=== PATIENT | male | born 1950 | race Caucasian/White ===

== ENCOUNTER 2023-06-14 15:47 | Emergency (ER) | payer OTHER, MEDICARE, SELFPAY ==
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
--- NOTE | 2023-06-14 15:56 | RT.EKG_ITS ---
APPROVED REPORT Exam: Resting ECG Reason for Exam: lightheaded Patient Location: E HR:87 bpm ECG Measurements Heart Rate 87 AXIS MN 136 P 43 QRSd 85 QRS 22 QT 358 T 20 QTc 432 Conclusion Sinus rhythm...V-rate 60- [address]. [address] segment or T wave abnormalities to suggest occlusive OR
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
[2023-06-14 16:06] VITALS: BP 112/76; PULSE 98; RESP 15; TEMP 37; O2SAT 96
[2023-06-14 16:47] VITALS: RESP 20
[2023-06-14 16:47] LABS: Abs Immature Grans 0.02 10^3/uL (0.0-0.06); Absolute Basophil Count 0.06 10^3/uL (0.0-0.2); Absolute Eosinophil Count 0.14 10^3/uL (0.0-0.7); Absolute Lymphocyte Count 1.41 10^3/uL (1.2-3.4); Absolute Monocyte Count 0.76 10^3/uL (0.1-0.8); Absolute Neutrophil Count 5.52 10^3/uL (1.2-6.7); Basophils % 0.8; Eosinophils % 1.8; HCT 43.8 % (40.0-50.0); HGB 15.3 g/dL (13.5-17.5); Immature Grans % 0.3; Lymphocytes % 17.8; MCH 33.1 pg (27.0-33.0); MCHC 34.9 % (32.0-36.0); MCV 95 fL (80-95); MPV 8.9 fL (8.0-11.0); Monocytes % 9.6; Neutrophils % 69.7; Platelet Count 285 10^3/uL (130-400); RBC 4.62 10^6/uL (4.36-5.78); RDW 12.2 % (11.8-14.1); RDW-SD 42.8 fL; WBC 7.91 10^3/uL (4.4-10.8)
[2023-06-14 16:50] LABS: Bilirubin Negative (Negative); Blood Negative (Negative); Clarity Clear (Clear); Glucose Negative (Negative); Ketones Negative (Negative); Leukocyte Esterase Negative (Negative); Nitrite Negative (Negative); Specific Gravity 1.015 (1.005-1.025); Urobilinogen 0.2 mg/dL (Up to 0.2); pH 6.5 (5-8)
[2023-06-14 17:00] LABS: ETHANOL BLOOD < 3.0 mg/dL (<10)
[2023-06-14 17:05] LABS: ALT 24 U/L (16-63); AST 21 U/L (15-37); Albumin 4.1 g/dL (3.4-5.0); Alkaline Phosphatase 63 U/L (46-116); Amylase 95 U/L (25-115); Anion Gap 8.4 mmol/L (3-11); BUN 17 mg/dL (7-18); Bilirubin, Total 0.3 mg/dL (0.2-1.0); CO2 27.6 mmol/L (21.0-32.0); Calcium 9.9 mg/dL (8.5-10.1); Chloride 102 mmol/L (98-107); Estimated GFR 78.49 (mL/min/1.73m2); Glucose 116 mg/dL (74-106); Lipase 32 U/L (16-77); Potassium 3.6 mmol/L (3.5-5.1); Sodium 138 mmol/L (136-145); Total Protein 8.1 g/dL (6.4-8.2); Troponin I < 50 ng/L (<or=60)
[2023-06-14 20:04] LABS: Troponin I < 50 ng/L (<or=60)
== END 2023-06-14 20:53 | disposition home or self-care (01) ==
PROVIDERS: Emergency Provider Student in an Organized Health Care Education/Training Program
DX: R42 Dizziness and giddiness (principal); V47.0XXA Car driver injured in collision with fixed or stationary object in nontraffic accident, initial encounter
CPT/HCPCS: 36415; 80053; 83690; 93005; 99283; 70450; 72125; 80320; 81003; 82150; 84484; 85025; 93010; 99284

== ENCOUNTER → 2024-01-17 05:01 | Outpatient (CLI) | payer MEDICARE, SELFPAY ==
--- NOTE | 2024-01-17 | DI.RAD_ITS ---
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 TECHNIQUE: 2D digital imaging was performed. Five views. COMPARISON: No exams were available for comparison FINDINGS: BONES: No fracture or destructive lesion. Vertebral body heights are maintained. Facet degenerative changes greatest at L4-5 and L5-S1. No bony erosions. SI joints are unremarkable. DISKS: Mild narrowing of the L 4 5 disc space. Small endplate osteophytes. Intervertebral disc spac es are maintained. ALIGNMENT: Lumbar spinal alignment is within normal limits. SOFT TISSUE: Aorta calcified and normal in diameter. IMPRESSION: Degenerative changes of the lower lumbar spine. DATA REPOSITORY: RADIATION DOSE DELIVERED:
== END ==
PROVIDERS: PCP Nurse Practitioner Family; Visit Provider Student in an Organized Health Care Education/Training Program
DX: M51.36 Other intervertebral disc degeneration, lumbar region (principal)
CPT/HCPCS: 72100

== ENCOUNTER → 2024-02-23 00:37 | Outpatient (CLI) | payer MEDICARE, SELFPAY ==
--- NOTE | 2024-02-23 13:15 | DI.RAD_ITS ---
Exam(s) XR FOOT RT COMPLETE EXAM: XR FOOT RT COMPLETE CLINICAL HISTORY: 1 month of pain,plantar fascitis rt foot, m72.2. TECHNIQUE: 2D digital imaging was performed of the right foot. Three images were obtained. AP, obl ique and lateral views were obtained. COMPARISON: No exams were available for comparison FINDINGS: BONES: No acute fracture is present. No bony destructive lesion is seen. There is a small plantar ry caneal spur. There is an enthesophyte at the posterior calcaneus. JOINTS: No dislocation present. Well corticated osseous densities are seen at the dorsal aspect of th e talonavicular joint which are likely chronic. SOFT TISSUE: Normal. IMPRESSION: Plantar calcaneal spur. DATA REPOSITORY: RADIATION DOSE DELIVERED:
== END ==
PROVIDERS: PCP Nurse Practitioner Family; Visit Provider Nurse Practitioner Family
DX: M72.2 Plantar fascial fibromatosis (principal)
CPT/HCPCS: 73630

== ENCOUNTER 2024-05-23 02:11 | Outpatient (CLI) | payer MEDICARE, SELFPAY ==
--- NOTE | 2024-05-23 15:05 | DI.MRI_ITS ---
Exam(s) MR LUMBAR SPINE WO EXAM: MR LUMBAR SPINE WO CLINICAL HISTORY: no improvement with PT,spinal stenosis, weakness,m48.00,r53.1. TECHNIQUE: Multiplanar multisequence MRI of the Lumbar spine was performed. COMPARISON: CR XR LUMBAR SPINE AP, LAT from 01/17/2024 FINDINGS: Bones: The last intervertebral disc space is designated the L5/S1 level for the numbering purpose of this examination. The vertebral body heights are well maintained. Alignment is satisfactory. There is a hemangioma or fatty rest in the L1 vertebral body and the L3 vertebral body. Degenerative endpl ate signal changes are present in the lumbar spine particularly at L4-L5. Cord: The conus tip ends at the L1 level. It is of normal size and signal intensity. T12-L1: No disc herniations or bulges are present. No central spinal canal or neural foraminal stenos is. L1-2: No disc herniations or bulges are present. No central spinal canal or neural foraminal stenosis . L2-3: No disc herniations or bulges are present. No central spinal canal or neural foraminal stenosis . L3-4: No disc herniations or bulges are present. No central spinal canal or neural foraminal stenosis .There are degenerative changes of the facets. L4-5: There is a diffuse disc bulge. There are hypertrophic changes of the facets and ligamentum fla vum. The findings result in mild narrowing of the central spinal canal. There is moderately severe bilateral neural foraminal stenosis. L5-S1: There is a mild diffuse disc bulge. There are degenerative changes of the facets and mild hyp ertrophy of the ligamentum flavum. No significant central spinal canal or neural foraminal stenosis is present. Soft tissues: The visualized SI joints and sacrum are well maintained. The paraspinal soft tissues ar e unremarkable. Visualized abdominal organs: Unremarkable. IMPRESSION: Multilevel degenerative changes. The findings are most marked at L4-L5 as described above. At this level, there is mild central spinal canal stenosis and moderately severe bilateral neural foraminal s tenosis. DATA REPOSITORY:
== END 2024-05-23 02:31 ==
LOC: DI 02:11
PROVIDERS: PCP Nurse Practitioner Family; Visit Provider Nurse Practitioner Family
DX: M48.061 Spinal stenosis, lumbar region without neurogenic claudication (principal); R53.1 Weakness
CPT/HCPCS: 72148

== ENCOUNTER 2024-06-13 02:07 | Outpatient (CLI) | payer MEDICARE, SELFPAY ==
[2024-06-13 12:32] LABS: ALT 23 U/L (16-63); AST 18 U/L (15-37); Albumin 3.8 g/dL (3.4-5.0); Alkaline Phosphatase 62 U/L (46-116); Anion Gap 5.9 mmol/L (3-11); BUN 16 mg/dL (7-18); Bilirubin, Total 0.56 mg/dL (0.2-1.0); CO2 28.1 mmol/L (21.0-32.0); CREATININE 1.1 mg/dL (0.70-1.30); Calcium 9.3 mg/dL (8.5-10.1); Calculated LDL 148 mg/dL (<100); Chloride 104 mmol/L (98-107); Cholesterol 221 mg/dL (<200); Estimated GFR 69.57 (mL/min/1.73m2); Glucose 118 mg/dL (74-106); HDL Cholesterol 53 mg/dL (40-60); Potassium 3.6 mmol/L (3.5-5.1); Sodium 138 mmol/L (136-145); Total Protein 7.7 g/dL (6.4-8.2); Triglyceride 103 mg/dL (<150)
[2024-06-13 12:41] LABS: Hemoglobin A1C 5.8 % (<5.7)
== END 2024-06-13 02:08 | disposition home or self-care (01) ==
LOC: LOS 02:07
PROVIDERS: PCP Nurse Practitioner Family; Visit Provider Nurse Practitioner Family
DX: E78.5 Hyperlipidemia, unspecified (principal); R73.03 Prediabetes
CPT/HCPCS: 36415; 80053; 80061; 83036

== ENCOUNTER → 2024-06-14 10:37 | Outpatient (BNVA) | payer MEDICARE, SELFPAY | PROVIDERS: PCP Nurse Practitioner Family; Referring Provider Nurse Practitioner Family; Visit Provider Psychiatry & Neurology Neurology | DX: G91.9 Hydrocephalus, unspecified (principal); R26.9 Unspecified abnormalities of gait and mobility; M54.50 Low back pain, unspecified; M48.061 Spinal stenosis, lumbar region without neurogenic claudication; R41.3 Other amnesia | CPT/HCPCS: 99215; G2212 ==

== ENCOUNTER 2024-06-23 20:30 | Observation (INO) | payer MEDICARE, SELFPAY ==
[2024-06-23] VITALS (33 sets, daily range): BP systolic 148–171; BP diastolic 83–105; PULSE 83–105; RESP 14–22; TEMP 36.5; O2SAT 92–97
--- NOTE | 2024-06-23 20:30 | DI.CT_ITS ---
Exam(s) CT CHEST/ABD/PEL W EXAM: CT CHEST/ABD/PEL W CLINICAL HISTORY: syncope, abd pain. TECHNIQUE: Imaging Protocol: Axial computed tomography images with coronal and sagittal reformatted images were created and reviewed CONTRAST MATERIAL: Intravenous: Omnipaque 350 Contrast volume:100 ml Oral: None COMPARISON: No exams were available for comparison FINDINGS: CHEST: LUNGS: Mild increased markings in the left lower lobe posterior basal and lateral basal segments but without air bronchograms and there are no pleural effusions. No findings in the trachea and mainstem bronchi. MEDIASTINUM: There is no hilar nor mediastinal adenopathy. Visualized thyroid unremarkable. CARDIAC: Heart size is normal. There is no pericardial effusion.Caliber of the thoracic aorta is wit hin normal limits.. No evidence of aortic dissection. OSSEOUS: No significant osseous lesions.No fractures.. ABDOMEN: There is no ascites. Stomach is filled with food. No evidence of bowel obstruction, free air, nor a bscess. LIVER: Liver is somewhat hypodense implying steatosis. There no discrete focal hepatic lesions ident ified. GALLBLADDER/BILIARY: No obvious gallbladder pathology. CBD is not dilated. PANCREAS: No evidence of pancreatic mass nor dilatation of the pancreatic duct. SPLEEN: Spleen is not enlarged. There are no intrasplenic lesions. Splenic and portal veins are farias nt. ADRENALS: There are no significant adrenal masses. KIDNEYS: Bilateral nephrolithiasis. Small calculi are seen in both kidneys. There is no hydronephro sis nor hydroureter. There is a benign 1 cm cyst in the lateral cortex of the right kidney. Does no t require further imaging workup. No solid renal masses. Ureters are not dilated. There is a calcu eric in the right-side of the urinary bladder which measures 8 x 6 mm. No other calculi nor masses se en in the bladder lumen.. ABDOMINAL AORTA: Abdominal aorta is calcified but not enlarged. Iliac arteries not enlarged. LYMPH NODES: There is no retroperitoneal nor paraaortic adenopathy. ABDOMINAL WALL: No evidence of significant anterior abdominal wall nor inguinal hernia. GI: There is no evidence of bowel obstruction. PELVIS: LYMPH NODES: There is no intrapelvic nor inguinal adenopathy. GI: No evidence of appendicitis.Multiple diverticuli in the sigmoid without evidence of acute diverti culitis. The colon above the sigmoid is collapsed. However, there does not appear to be evidence of a small-bowel obstruction. URINARY BLADDER: Contains an 8 x 6 mm calculus on the dependent wall, right of center. There is a sma ll Hutch diverticulum on the right side of the urinary bladder. Does not contain calculi nor mass. REPRODUCTIVE: Prostate size normal. Seminal vesicles unremarkable. OSSEOUS: No significant osseous lesions. No fractures. IMPRESSION: 1. No significant acute pulmonary findings 2. Bilateral nephrolithiasis. Although there is no hydronephrosis nor hydroureter, there is an 8 x 6 mm calculus in the urinary bladder lumen. Hutch diverticulum on the right side of the urinary bladde r is noted. This does not contain calculi nor mass. 3. Sigmoid diverticulosis without evidence of acute diverticulitis. There is also no evidence of acu te appendicitis. First read by [facility] Final report called by myself to ER next date 06/24/2024 RADIATION DOSE DELIVERED: 1,311.55mGy.cm Total DLP DATA REPOSITORY: All CT scans at this facility are submitted to the National Radiology Data Registry (NRDR) Dose Index Registry (DIR) with the [employer] (ACR). RADIATION OPTIMIZATION: All CT scans at this facility use at least one of these dose optimization te chniques: automated exposure control; mA and/or kV adjustment per patient size (includes targeted exa ms where dose is matched to clinical indication); or iterative reconstruction.
--- NOTE | 2024-06-23 20:30 | RT.EKG_ITS ---
APPROVED REPORT Exam: Resting ECG Reason for Exam: syncope Patient Location: E HR:77 bpm ECG Measurements Heart Rate 77 AXIS TN 152 P 56 QRSd 85 QRS 53 QT 396 T 38 QTc 447 Conclusion Sinus rhythm...normal P axis, V-rate 60- 99 sinus, nromal axis, normal intervals, non ischemic
--- NOTE | 2024-06-23 20:30 | DI.CT_ITS ---
Exam(s) CT HEAD WO EXAM: CT HEAD WO CLINICAL HISTORY: syncope, HI, eliquis, hx of hydrocephalus. TECHNIQUE: Imaging Protocol: Axial computed tomography images with coronal and sagittal reformatted images were created and reviewed COMPARISON: CT CT HEAD CERVICAL SPINE WO from 06/14/2023 FINDINGS: There are no skull fractures. There is no fluid in the visualized paranasal sinuses. There is no evidence of intracranial hemorrhage, mass effect, or shift of midline structures. There are no extra-axial fluid collections. Ventricular size is again noted to be slightly prominent but u nchanged and commensurate with the size of the overlying cortical sulci. Thumb symmetrical periventr icular hypodensity consistent with chronic small vessel disease is again noted. Left so symmetrical areas of subtle hypodensity in both cerebellar hemispheres, unchanged. IMPRESSION: No acute intracranial findings on this noninfused CT scan of the brain. Involutional change and chronic small-vessel disease appears unchanged from prior CT scan of June 2023. RADIATION DOSE DELIVERED: 908.9mGy.cm Total DLP DATA REPOSITORY: All CT scans at this facility are submitted to the National Radiology Data Registry (NRDR) Dose Index Registry (DIR) with the [employer] (ACR). RADIATION OPTIMIZATION: All CT scans at this facility use at least one of these dose optimization te chniques: automated exposure control; mA and/or kV adjustment per patient size (includes targeted exa ms where dose is matched to clinical indication); or iterative reconstruction.
--- NOTE | 2024-06-23 20:48 | ED.GENADUL_ITS ---
Discharge Plan Disposition Condition: Good Discharge Details Chief Complaint: Dizzy/Sync Admit Date/Time: 06/24/24 00:20 Admit Provider: Flo Epperson Attending Provider: Flo Epperson Primary Care Provider: Quinn Solis ED Provider: Valery Rodriguez Discharge Instructions Activity:: Activity as Tolerated Equipment/Supplies:: No Equipment Needed Diet:: As Tolerated Discharge Orders Discharge Orders: Discharge Order (Routine); Ordered 06/24/24 Ordered By: Yoselin Rainey Discharge Data Discharge Date/Time-TO BE ENTERED AT DEPARTURE: 06/24/24 01:20 HPI General Date/Time Provider Initiated Documentation: 06/23/24 20:42 . HPI Narrative: This 74-year-old male states that he developed syncope with lightheadedness nausea, vomiting after having severe abdominal pains and diarrhea. He was sitting on the toilet and passed out once he was about to pass out again, family caught him. States he has a history of syncope in the past. Denies any chest pain or palpitations prior to onset of symptoms. States he had some lightheadedness and felt like he might pass out. Has had intermittent nausea and vomiting. Has also had significant diarrhea. Denies any recent antibiotic use. States he still feels weak. Related Data Home Medications ?Medication ?Instructions ?Recorded ?Confirmed B-complex with vitamin C 1 cap PO DAILY 08/02/23 06/23/24 acetaminophen 325 mg capsule 325 mg PO Q6H PRN 08/02/23 06/23/24 (Tylenol) multivitamin 1 tab PO DAILY 08/02/23 06/23/24 apixaban 5 mg tablet (Eliquis) 5 mg PO BID #180 tabs 08/10/23 06/23/24 diltiazem HCl 120 mg capsule,24 120 mg PO DAILY #90 caps 08/10/23 06/23/24 hr,extended release hydrochlorothiazide 12.5 mg tablet 12.5 mg PO DAILY #90 tabs 08/10/23 06/23/24 lisinopril 5 mg tablet 5 mg PO DAILY #90 tabs 08/10/23 06/23/24 etanercept 50 mg/mL (1 mL) 50 mg subcut QWEEK #4 mL 09/26/23 06/23/24 subcutaneous cartridge (Enbrel Mini) meclizine 25 mg tablet 25 mg PO DAILY PRN dizziness #30 05/28/24 06/23/24 tabs ondansetron 4 mg disintegrating 4 mg PO Q8H PRN 06/14/24 06/24/24 tablet Previous Rx's ?Medication ?Instructions ?Recorded apixaban 5 mg tablet (Eliquis) 5 mg PO BID #180 tabs 08/10/23 diltiazem HCl 120 mg capsule,24 120 mg PO DAILY #90 caps 08/10/23 hr,extended release hydrochlorothiazide 12.5 mg tablet 12.5 mg PO DAILY #90 tabs 08/10/23 lisinopril 5 mg tablet 5 mg PO DAILY #90 tabs 08/10/23 etanercept 50 mg/mL (1 mL) 50 mg subcut QWEEK #4 mL 09/26/23 subcutaneous cartridge (Enbrel Mini) meclizine 25 mg tablet 25 mg PO DAILY PRN dizziness #30 05/28/24 tabs Allergies Allergy/AdvReac Type Severity Reaction Status Date / Time [id number] Reductase AdvReac Intermediate myalgias Verified 06/23/24 20:39 Inhibitor General Stated Complaint: Dizzy/Sync ROMÁN: 3 Exam Narrative Exam Narrative: 74-year-old male alert and oriented, pupils equal round reactive to light and accommodation, oropharynx patent, uvula midline, lungs clear to auscultation, cardiac rate rhythm regular, mild diffuse abdominal tenderness without rebound or guarding, alert and oriented x 4, cranial nerves II through XII intact, 1+ edema to bilateral lower extremities without tenderness Course Vital Signs Vital signs: Vital Signs Temperature 36.5 C 06/23/24 20:32 Pulse 83 06/23/24 20:32 Respiratory Rate 20 06/23/24 20:32 Blood Pressure 150/83 H 06/23/24 20:32 Pulse Oximetry 95 06/23/24 20:32 Temperature 36.5 C 06/23/24 20:32 Temperature Source Oral 06/23/24 20:32 Pulse 83 06/23/24 20:32 Respiratory Rate 18 06/23/24 20:36 Respiratory Effort Normal 06/23/24 20:36 Respiratory Depth Normal 06/23/24 20:36 Respiratory Pattern Normal 06/23/24 20:36 Blood Pressure 150/83 H 06/23/24 20:32 Pulse Oximetry 95 06/23/24 20:32 Oxygen Delivery Method Nasal Cannula 06/23/24 20:32 Oxygen Flow Rate 2 06/23/24 20:32 Medical Decision Making 74-year-old male presenting with recurrent syncope in the presence of immunodeficiency, atrial fibrillation history, chronically anticoagulated, with hydrocephalus. Patient had an episode of mild confusion with severe abdominal pain and diarrhea followed by recurrent syncope, family states 4-5 syncopal events over the course of 10 minutes. No reported seizure-like activity. Patient secondary to age and medical comorbidities I did order CT head and chest, abdomen and pelvis. The results of these are pending secondary to delay by virtual radiology. Diagnostic labs are reassuring, potassium of 3.3, will supplement. Patient also will receive his nightly dose of diltiazem. I did not check orthostatics in this patient but he did receive 500 cc of fluid, will use caution secondary to fluids shortage. I did administer fluid in the presence of nausea with 1 episode of vomiting and multiple episodes of diarrhea. Patient has not been on recent antibiotics to lower suspicion for C. difficile colitis. Patient did have a cookie with marijuana and ate, he had a similar cookie yesterday evening and regularly consumes space and does not believe this is the cause. Patient has been resting comfortably but without any dysrhythmia during this encounter. I did discuss the case with Dr. Epperson given the recurrent syncope, patient age, and history of dysrhythmia. I think patient would benefit from 24-hour observation. Patient is pending CT head and chest abdomen and pelvis assessment at this time. Will transition care pending CTs for admission to the hospital. 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 systolic function w/ an EF of 55%, mild left vent hypertrophy, mild dilated left atrium, diastolic dysfunction, no hemodynamically significant valve abnormalities Medical History TIA (transient ischemic attack) Surgical History Hx of cataract surgery (~2015) H/O total knee replacement (~2020) 07/19/[address] [facility]. -[facility] Family History Mother Dementia Heart disease Hypertension Father Cancer Brother Heart disease Hypertension Daughter Asthma Hypertension Son Heart disease Hypertension Social History Smoking/Tobacco Use Status: Never Second Hand Exposure: Yes Smoking risk assessment performed?: Yes Alcohol Intake: current Alcohol Intake frequency: a few times a month Alcohol type: beer Drug use: Rarely Substance use type: marijuana Adopted: No Caregiver/Support person: No Foster care: No Household members: spouse and family Housing: house Number of Children: 1 number of grandchildren: 2 Communication Needs: Corrective Lenses Do you need help understanding health information?: Never current occupation: retired Pets and animals: Yes Pets and animals: dog(s) Sexually active: No Do you think of yourself as: straight/heterosexual Current gender identity: male What is your relationship status?: How often do you talk on the phone with friends or family?: once per week How often do you get together with friends or relatives?: decline to answer How often do you attend mosque or mandaen services?: decline to answer Do you belong to any clubs or organized social groups?: yes Panel score (0-1 are the most socially isolated patients): 2 What type of physical activity do you participate in: none Dawna/Congregational: None Special dawna needs: No Agree to transfusion: Yes Seatbelt use: always Helmet use: Yes Drive intox or ride w/intox transit bus driver: No Working smoke detector in home: Yes Carbon monox detector in home: Yes Firearms in home: No Do you feel safe at home: Yes Do you feel safe in your relationship?: Yes Victim of physical abuse: No Victim of emotional abuse: No Victim of sexual abuse: No Sign Out Sign Out Data: Sign Out Comment: pending ct interpretation head,chest,abd, pelvis. Hospitalist aware of pt, pls call post CT Last updated by Anju Kirk PA at 06/23/24 23:16
[2024-06-23 20:56] LABS: Lactate 1.2 mmol/L (0.6-1.4)
[2024-06-23 20:58] LABS: Abs Immature Grans 0.02 10^3/uL (0.0-0.06); Absolute Basophil Count 0.05 10^3/uL (0.0-0.2); Absolute Lymphocyte Count 2.37 10^3/uL (1.2-3.4); Absolute Monocyte Count 0.89 10^3/uL (0.1-0.8); Absolute Neutrophil Count 4.88 10^3/uL (1.2-6.7); Basophils % 0.6 %; Eosinophils % 2.4 %; HGB 14.2 g/dL (13.5-17.5); Immature Grans % 0.2 %; Lymphocytes % 28.2 %; MCH 33.6 pg (27.0-33.0); MCHC 34.6 % (32.0-36.0); MCV 97 fL (80-95); Monocytes % 10.6 %; Platelet Count 253 10^3/uL (130-400); RBC 4.23 10^6/uL (4.36-5.78); RDW 12.4 % (11.8-14.1); RDW-SD 44.2 fL; WBC 8.41 10^3/uL (4.4-10.8)
[2024-06-23] MEDS: Omnipaque 350 MG/ML 100 ML BTL IJ (21:10)
[2024-06-23] MEDS: Normal Saline - Diluent 50 ML VIAL IJ (21:10)
[2024-06-23 21:14] LABS: ALT 26 U/L (16-63); AST 18 U/L (15-37); Albumin 3.8 g/dL (3.4-5.0); Alkaline Phosphatase 59 U/L (46-116); BUN 19 mg/dL (7-18); CREATININE 1.1 mg/dL (0.70-1.30); Calcium 9.3 mg/dL (8.5-10.1); Chloride 102 mmol/L (98-107); Estimated GFR 69.57 (mL/min/1.73m2); Glucose 133 mg/dL (74-106); Potassium 3.3 mmol/L (3.5-5.1); Sodium 139 mmol/L (136-145); Total Protein 7.6 g/dL (6.4-8.2)
[2024-06-23 21:26] LABS: TSH (W/Ref FT4) 1.49 uIU/mL (0.36-3.74); Troponin I 6 ng/L (<or=76)
[2024-06-23] MEDS: Normal Saline 500 ML IV (21:39)
--- NOTE | 2024-06-23 21:55 | NUR.NOTE ---
Nursing Note: This RN gave report and transfer of care to Sweetie Renee RN at this time
[2024-06-23 22:33] LABS: Troponin I 7 ng/L (<or=76)
[2024-06-23] MEDS: dilTIAZem CD 120 MG CAPCR PO (23:07)
--- NOTE | 2024-06-23 23:21 | DI.VRAD_ITS ---
PROCEDURE INFORMATION: Exam: CT Head Without Contrast Exam date and time: 06/23/2024 9:04 PM Age: 74 years old Clinical indication: Other: Syncope, hi, eliquis, HX of hydrocephalus TECHNIQUE: Imaging protocol: Computed tomography of the head without contrast. COMPARISON: CT HEAD CERVICAL SPINE WO 06/14/2023 5:16 PM FINDINGS: Brain: No intracranial hemorrhage. There is global parenchymal volume loss. Periventricular white matter hypoattenuation is nonspecific but most likely due to small vessel disease. No evidence of acute territorial infarct or cerebral edema. No mass effect or midline shift. Cerebral ventricles: Prominent ventricles likely secondary to volume loss. Paranasal sinuses: Visualized sinuses are unremarkable. No fluid levels. Mastoid air cells: Visualized mastoid air cells are well aerated. Bones: Unremarkable. No acute fracture. Soft tissues: Unremarkable. IMPRESSION: No acute intracranial findings. Dictated and Authenticated by: Elizabeth Villanueva MD. Ordering:QUAN Rene MD
--- NOTE | 2024-06-23 23:24 | W.EDPROG ---
Date of service: 06/23/24 Time of Service: 23:05 Medical Decision Making This patient was signed out to me. Please see previous notes for H&P and initial eval. In brief, 74yo M with multiple syncopal events. Tentatively accepted to medicine service pending CT results ([facility]AD with extended read times this evening). Plan to followup CT reads and update hospitalist with results. CTs as below, no significant acute findings. [facility] hospitalist updated regarding CT results. Awaiting admission orders and transfer to the floor. Imaging Data Radiologic Study: Imaging: CT Scan Radiologist's impression: CT head: IMPRESSION: No acute intracranial findings CT chest: IMPRESSION: No acute lung process CT AP: IMPRESSION: Punctate bilateral renal calculi without hydronephrosis. Diverticulosis without evidence of acute diverticulitis. Chronic noncritical findings as described above. Quality:SDOH Health Related Social Needs: No Data to Display Sign Out Sign Out Data: Sign Out Comment: pending ct interpretation head,chest,abd, pelvis. Hospitalist aware of pt, pls call post CT Last updated by Anju Kirk PA at 06/23/24 23:16 Discharge Plan Discharge Details Chief Complaint: Dizzy/Sync Primary Care Provider: Quinn Solis ED Provider: Valery Rodriguez Home Meds and New Rx's Prescriptions: No Action lisinopril 5 mg tablet 5 mg PO DAILY Qty: 90 4RF hydrochlorothiazide 12.5 mg tablet 12.5 mg PO DAILY Qty: 90 4RF diltiazem HCl 120 mg capsule,extended release 24 hr 120 mg PO DAILY Qty: 90 4RF Eliquis 5 mg tablet 5 mg PO BID Qty: 180 4RF meclizine 25 mg tablet 25 mg PO DAILY PRN (Reason: dizziness) Qty: 30 0RF ondansetron 4 mg tablet,disintegrating 4 mg PO Q8H multivitamin Tablet 1 tab PO DAILY B-complex with vitamin C Capsule 1 cap PO DAILY acetaminophen [Tylenol] 325 mg capsule 325 mg PO Q6H PRN Enbrel Mini 50 mg/mL (1 mL) cartridge 50 mg subcut QWEEK Qty: 4 12RF
--- NOTE | 2024-06-23 23:28 | DI.VRAD_ITS ---
PROCEDURE INFORMATION: Exam: CT Chest With Contrast; Diagnostic Exam date and time: 06/23/2024 9:05 PM Age: 74 years old Clinical indication: Other: Syncope, abd pain TECHNIQUE: Imaging protocol: Diagnostic computed tomography of the chest with contrast. 3D rendering (Not supervised by radiologist): MIP and/or 3D reconstructed images were created by the technologist. Contrast material: 350; Contrast volume: 100 ml; Contrast route: INTRAVENOUS (IV); COMPARISON: CT HEAD CERVICAL SPINE WO 06/14/2023 5:16 PM FINDINGS: Lungs: Bibasilar atelectasis. Pleural spaces: Unremarkable. No pneumothorax. No pleural effusion. Heart: Cardiomegaly with mild atherosclerotic disease. Lymph nodes: Unremarkable. No enlarged lymph nodes. Vasculature: Unremarkable. No aortic aneurysm. Diaphragm: There is a small hiatal hernia. Bones/joints: Unremarkable. No acute fracture. Soft tissues: Unremarkable. IMPRESSION: No acute lung process PROCEDURE INFORMATION: Exam: CT Abdomen And Pelvis With Contrast Exam date and time: 06/23/2024 9:05 PM Age: 74 years old Clinical indication: Other: Syncope, abd pain TECHNIQUE: Imaging protocol: Computed tomography of the abdomen and pelvis with contrast. 3D rendering (Not supervised by radiologist): MIP and/or 3D reconstructed images were created by the technologist. Contrast material: 350; Contrast volume: 100 ml; Contrast route: INTRAVENOUS (IV); COMPARISON: MR LUMBAR SPINE WO 05/23/2024 2:38 PM FINDINGS: Lungs: Clear Liver: The liver is diffusely decreased in density, compatible with hepatic steatosis. Gallbladder and biliary ducts: Normal. No calcified stones. No ductal dilation. Pancreas: Normal. No ductal dilation. Spleen: Normal. No splenomegaly. Adrenal glands: Normal. No mass. Kidneys and ureters: Punctate bilateral renal calculi without hydronephrosis. Small bilateral renal cysts. No follow-up imaging required. Stomach and bowel: Colonic diverticulosis is present without diverticulitis. The stomach is distended with debris and fluid Appendix: No evidence of appendicitis. Intraperitoneal space: Unremarkable. No free air. No significant fluid collection. Vasculature: Diffuse atherosclerotic disease. Lymph nodes: Unremarkable. No enlarged lymph nodes. Urinary bladder: Unremarkable as visualized. Reproductive: Punctate calcifications within the prostate. Bones/joints: Moderate multilevel degenerative changes of the thoracolumbar spine. Soft tissues: Small fat containing inguinal hernias. There is a small fat-containing umbilical hernia. IMPRESSION: Punctate bilateral renal calculi without hydronephrosis. Diverticulosis without evidence of acute diverticulitis. Chronic noncritical findings as described above. Dictated and Authenticated by: Elizabeth Villanueva MD. Ordering:QUAN Rene MD
[2024-06-23 23:52] LABS: Bilirubin Negative (Negative); Blood Negative (Negative); Clarity Clear (Clear); Glucose Negative (Negative); Ketones 15 mg/dL (Negative); Leukocyte Esterase Negative (Negative); Nitrite Negative (Negative); Urobilinogen 0.2 mg/dL (Up to 0.2)
--- NOTE | 2024-06-23 23:59 | HPE_ITS ---
Date of service: 06/23/24 Time of Service: 23:59 Assessment and Plan Assessment and plan (1) Syncope: Start date: 06/24/24 Start time: 00:10 Status: Acute Assessment and plan: The patient is a 74 M who comes in w/ acute onset of abdominal pain, nausea, vomiting and non-bloody diarrhea which began acutely this evening resulting in syncope while in the bathroom and then had three other repeat episodes. On exam he is AAOx3. His EKG is NSR. His vital signs and lab work is normal. On exam he does have slight RLE weakness when compared to the L but this is a chronic issues s/p his knee replacement years ago. He most likely had vasovasgal syncope while on the toilet w/ diarrhea. Recommend to monitor on telemetry for now. Check orthostatics in AM and re-evaluate IVF administration. WBC 8.41 HG 14.2 PLT 253 -Cont to monitor for now -Consider Orthostatics in AM and re-evlauate IVF -EKG is NSR and VSS (2) Hydrocephalus: Status: Acute Assessment and plan: He has had chronic hydrocephalus and can have headaches. He did move up from [place] and has been referred to Neurology -Referred to outpatient Neurology -Cont to monitor for now (3) Vertigo: Status: Acute Assessment and plan: He has a history of vertigo and has been referred to outpatient neurology. He is on Meclizine 25mg prn -Cont w/ Meclizine prn (4) Atrial fibrillation: Status: Chronic Assessment and plan: -Cont w/ Diltiazem 120mg daily -Cont w/ Eliquis 5mg bid (5) Hypertension: Status: Chronic Assessment and plan: -Cont w/ Lisinopril 5mg daily -COnt w/ HCTZ 12.5mg daily -Cont w/ Diltiazem 120mg daily (6) Psoriatic arthritis: Status: Acute Assessment and plan: -Cont w/ Etanercept 50mg sq weekly History of Present Illness History of Present Illness Chief Complaint: I passed out Narrative: The patient is a 74 y/o C M w/ PMH AFIB who comes in w/ multiple episodes of syncope today. He was doing well this morning but around 5pm he began to have generalized abdominal pain which is described as a cramping sensation w/o any radiating symptoms. Associated symptoms include nausea and vomiting w/ coffee ground emesis. He does not recall any dietary changes or visiting any new restaurants or trying exotic foods. When he went to the bathroom he began to have profuse watery diarrhea at which time he passed out. After that episode he began to have recurrent brief episodes of syncope for a few minutes. He denies any fever, chills or night sweats. He denies any dysarthria or dysphagia. He does not have any chest pain, palpitations, coughing, wheezing or dyspnea. He does not have any extremity weakness or sensory deficits. Review of Systems Constitutional Constitutional: Denies fever(s), Denies night sweats and Denies weight loss Eyes Eyes: Denies blurry vision and Denies eye pain ENT Ears, Nose, Mouth, and Throat: Denies dysphagia and Denies neck pain Cardiovascular Cardiovascular: Denies chest pain, Denies rapid heart rate, Denies irregular heart rhythm, Reports lightheadedness, Denies dyspnea and Denies dyspnea on exertion Respiratory Respiratory: Denies dyspnea and Denies dyspnea on exertion Gastrointestinal Gastrointestinal: Reports abdominal pain, Denies dysphagia, Reports diarrhea, Reports nausea, Reports vomiting and Denies hematemesis Genitourinary Genitourinary: Denies hematuria Musculoskeletal Musculoskeletal: Denies arthralgias, Denies muscle weakness, Denies neck pain and Denies numbness Neurologic Neurologic: Denies localized weakness and Denies numbness PFSH All Active Problems (Updated 06/24/24 @ 00:11 by Flo Epperson MD) Syncope (Acute) Memory changes (Acute) Low back pain (Acute) Abnormal gait (Acute) Plantar fasciitis of right foot (Acute) Weakness (Acute) Hydrocephalus (Acute) Vertigo (Acute) 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 systolic function w/ an EF of 55%, mild left vent hypertrophy, mild dilated left atrium, diastolic dysfunction, no hemodynamically significant valve abnormalities Medical History TIA (transient ischemic attack) Surgical History Hx of cataract surgery (~2015) H/O total knee replacement (~2020) 07/19/2021 [facility]. -hb Family History Mother Dementia Heart disease Hypertension Father Cancer Brother Heart disease Hypertension Daughter Asthma Hypertension Son Heart disease Hypertension Social History Smoking/Tobacco Use Status: Never Second Hand Exposure: Yes Smoking risk assessment performed?: Yes Alcohol Intake: current Alcohol Intake frequency: a few times a month Alcohol type: beer Drug use: Rarely Substance use type: marijuana Adopted: No Caregiver/Support person: No Foster care: No Household members: spouse and family Housing: house Number of Children: 1 number of grandchildren: 2 Communication Needs: Corrective Lenses Do you need help understanding health information?: Never current occupation: retired Pets and animals: Yes Pets and animals: dog(s) Sexually active: No Do you think of yourself as: straight/heterosexual Current gender identity: male What is your relationship status?: How often do you talk on the phone with friends or family?: once per week How often do you get together with friends or relatives?: decline to answer How often do you attend worship or uatsdin services?: decline to answer Do you belong to any clubs or organized social groups?: yes Panel score (0-1 are the most socially isolated patients): 2 What type of physical activity do you participate in: none Dixon/Catholic: None Special dixon needs: No Agree to transfusion: Yes Seatbelt use: always Helmet use: Yes Drive intox or ride w/intox coach driver: No Working smoke detector in home: Yes Carbon monox detector in home: Yes Firearms in home: No Do you feel safe at home: Yes Do you feel safe in your relationship?: Yes Victim of physical abuse: No Victim of emotional abuse: No Victim of sexual abuse: No Meds Allergies and Home Medications Allergies Allergy/AdvReac Type Severity Reaction Status Date / Time [id number] Reductase AdvReac Intermediate myalgias Verified 06/23/24 20:39 Inhibitor Home Medications ?Medication ?Instructions ?Recorded ?Confirmed ?Type B-complex with vitamin C 1 cap PO DAILY 08/02/23 06/23/24 History acetaminophen 325 mg capsule 325 mg PO Q6H PRN 08/02/23 06/23/24 History (Tylenol) multivitamin 1 tab PO DAILY 08/02/23 06/23/24 History apixaban 5 mg tablet (Eliquis) 5 mg PO BID #180 tabs 08/10/23 06/23/24 Rx diltiazem HCl 120 mg capsule,24 120 mg PO DAILY #90 caps 08/10/23 06/23/24 Rx hr,extended release hydrochlorothiazide 12.5 mg tablet 12.5 mg PO DAILY #90 tabs 08/10/23 06/23/24 Rx lisinopril 5 mg tablet 5 mg PO DAILY #90 tabs 08/10/23 06/23/24 Rx etanercept 50 mg/mL (1 mL) 50 mg subcut QWEEK #4 mL 09/26/23 06/23/24 Rx subcutaneous cartridge (Enbrel Mini) meclizine 25 mg tablet 25 mg PO DAILY PRN dizziness #30 05/28/24 06/23/24 Rx tabs ondansetron 4 mg disintegrating 4 mg PO Q8H 06/14/24 06/23/24 History tablet Exam Const General: cooperative, healthy appearing, comfortable, no acute distress and well developed Orientation: alert, awake and oriented x3 HENMT Head: normal to inspection Ears: hearing grossly normal bilaterally General nose exam: external nose normal Face and sinus: normal facial exam Eyes General: appearance normal, both eyes and all related structures Alignment and Position: alignment normal Periorbital: periorbital findings normal Eyelids: eyelids normal Conjunctivae: conjunctivae normal Sclera: sclerae normal EOM: EOM intact bilaterally Neck Neck: normal visual inspection and no lymphadenopathy Chest Chest: normal inspection of the chest Resp Effort & Inspection: normal respiratory effort Auscultation: clear to auscultation bilaterally Cardio Rate: regular rate Rhythm: regular rhythm Heart Sounds: S1 normal and S2 normal GI Inspection: normal to inspection Palpation: soft Percussion: normal to percussion Auscultation: normal bowel sounds Skin General skin exam: no rashes or lesions noted Neuro General: patient alert, patient awake, patient oriented x3, no focal motor deficits and CN's II-XI intact bilaterally Other: RUE distal 5/5 LUE distal 5/5 RLE proximal 4-/5 (chronic) RLE distal 4-/5 (chronic) LLE proximal 4/5 LLE distal 4/5 Extrem General: normal to inspection Psych Appearance: grossly normal Mental Status: mental status grossly normal Results Labs 06/23/24 20:43 06/23/24 20:43 Labs: Laboratory Results - last 24 hr 06/23/24 06/23/24 06/23/24 20:43 22:09 23:45 WBC 8.41 RBC 4.23 L Hgb 14.2 Hct 41.0 MCV 97 H MCH 33.6 H MCHC 34.6 RDW 12.4 Plt Count 253 MPV 9.0 Immature Gran % 0.2 Neutrophils % 58.0 Lymphocytes % 28.2 Monocytes % 10.6 Eosinophils % 2.4 Basophils % 0.6 Nucleated RBC % 0.0 Absolute Neutrophils 4.88 Absolute Lymphocytes 2.37 Absolute Monocytes 0.89 H Absolute Eosinophils 0.20 Absolute Basophils 0.05 VBG Lactate 1.2 Sodium 139 Potassium 3.3 L Chloride 102 Carbon Dioxide 27.0 Anion Gap 10.0 BUN 19 H Creatinine 1.1 Est GFR (CKD-EPI 2020) 69.57 Glucose 133 H Calcium 9.3 Magnesium 2.0 Total Bilirubin 0.30 AST 18 ALT 26 Alkaline Phosphatase 59 Troponin I 6 7 Total Protein 7.6 Albumin 3.8 TSH 1.49 Urine Color Yellow Urine Clarity Clear Urine pH 7.0 Ur Specific [place] 1.010 Urine Protein Negative Urine Ketones 15 H Urine Blood Negative Urine Nitrite Negative Urine Bilirubin Negative Urine Urobilinogen 0.2 Ur Leukocyte Esterase Negative Urine Glucose Negative Last Vital Signs Temp 36.5 C 06/23/24 20:32 Pulse 105 H 06/23/24 23:46 Resp 21 06/23/24 23:46 BP 148/99 H 06/23/24 23:46 Pulse Ox 95 06/23/24 23:46 Time Spent Time spent with Patient: 40-54 minutes Time was spent: preparing to see the patient(eg.review tests), obtaining and/or reviewing separately otained hiistory, ordering medications,tests, procedures and indepentently interpreting results
[2024-06-24] VITALS (35 sets, daily range): BP systolic 119–164; BP diastolic 64–98; PULSE 66–97; RESP 12–18; TEMP 36–36.8; O2SAT 93–97
--- NOTE | 2024-06-24 01:30 | W.PC.ACHO ---
Registration Status: Primary Language: Preferred Language: ED Information & Data Chief Complaint Dizzy/Sync 06/23/24 20:54 Triage Note dizziness/ lightheadedness 06/23/24 20:32 on the toilet. Unknown if there was LOC. Upon EMS arival, pt not aware of what was going on. No blood noted in stool or vomit. No cardiac hx noted. [place] and beers today. Hx of hydrocephalus. IV zofran given en route Medical / Surgical History (Last Reviewed 06/14/24 @ 23:34 by Jyotsna Jon MD) TIA (transient ischemic attack) (Last Reviewed 06/14/24 @ 23:34 by Jyotsna Jon MD) Hx of cataract surgery (~2015) H/O total knee replacement (~2020) Most Recent Vital Signs Temperature 36 C L 06/24/24 01:02 Temperature Source Temporal Artery Scan 06/24/24 01:00 Pulse 97 H 06/24/24 01:00 Pulse Rhythm Irregular 06/24/24 01:02 Respiratory Rate 14 06/24/24 01:00 Respiratory Effort Normal 06/24/24 01:02 Respiratory Depth Normal 06/24/24 01:02 Respiratory Pattern Normal 06/24/24 01:02 Blood Pressure 139/93 H 06/24/24 01:00 Pulse Oximetry 95 06/24/24 01:00 Oxygen Delivery Method Room Air 06/24/24 01:02 Oxygen Flow Rate 0 06/24/24 01:02 Pain Level 4 06/24/24 01:02 Comment SITTING AT EDGE OF BED 06/23/24 23:46 Allergies [id number] Reductase Inhibitor Adverse Reaction (Intermediate, Verified 06/23/24 20:39) myalgias Precautions Isolation Standard precaution 06/23/24 20:35 Active Medications Generic Name Dose Route Start Last Admin Trade Name Freq PRN Reason Stop Dose Admin Iohexol 100 ml 06/23/24 21:15 06/23/24 21:10 Omnipaque 350 Mg/Ml 100 Ml Btl IJ 07/23/24 23:59 100 ml DIRECTED LEANDRO Administration Sodium Chloride 50 ml 06/23/24 21:15 06/23/24 21:10 Normal Saline - Diluent 50 Ml Vial IJ 50 ml .FOR DI USE LEANDRO Administration IV IV Catheter Type [Right Saline Lock Forearm] IV Catheter Type [Left Saline Lock Antecubital] IV Catheter Gauge [Right 18 Forearm] IV Catheter Gauge [Left 18 Antecubital] Diet Orders Category Date Time Status Regular/Normal [DIET] Nutrition 06/24/24 Breakfast Active Diagnostics 06/23/24 06/23/24 06/23/24 Range/Units 23:45 22:09 20:43 WBC 8.41 (4.4-10.8) 10^3/uL RBC 4.23 L (4.36-5.78) 10^6/uL Hgb 14.2 (13.5-17.5) g/dL Hct 41.0 (40.0-50.0) % MCV 97 H (80-95) fL MCH 33.6 H (27.0-33.0) pg MCHC 34.6 (32.0-36.0) % RDW 12.4 (11.8-14.1) % Plt Count 253 (130-400) 10^3/uL MPV 9.0 (8.0-11.0) fL Immature Gran % 0.2 % Neutrophils % 58.0 % Lymphocytes % 28.2 % Monocytes % 10.6 % Eosinophils % 2.4 % Basophils % 0.6 % Nucleated RBC % 0.0 (0.0-0.3) % Absolute Neutrophils 4.88 (1.2-6.7) 10^3/uL Absolute Lymphocytes 2.37 (1.2-3.4) 10^3/uL Absolute Monocytes 0.89 H (0.1-0.8) 10^3/uL Absolute Eosinophils 0.20 (0.0-0.7) 10^3/uL Absolute Basophils 0.05 (0.0-0.2) 10^3/uL VBG Lactate 1.2 (0.6-1.4) mmol/L Sodium 139 (136-145) mmol/L Potassium 3.3 L (3.5-5.1) mmol/L Chloride 102 (98-107) mmol/L Carbon Dioxide 27.0 (21.0-32.0) mmol/L Anion Gap 10.0 (3-11) mmol/L BUN 19 H (7-18) mg/dL Creatinine 1.1 (0.70-1.30) mg/dL Est GFR (CKD-EPI 2020) 69.57 (mL/min/1.73m2) Glucose 133 H (74-106) mg/dL Calcium 9.3 (8.5-10.1) mg/dL Magnesium 2.0 (1.8-2.4) mg/dL Total Bilirubin 0.30 (0.2-1.0) mg/dL AST 18 (15-37) U/L ALT 26 (16-63) U/L Alkaline Phosphatase 59 (46-116) U/L Troponin I 7 6 (<or=76) ng/L Total Protein 7.6 (6.4-8.2) g/dL Albumin 3.8 (3.4-5.0) g/dL TSH 1.49 (0.36-3.74) uIU/mL Urine Color Yellow (Yellow) Urine Clarity Clear (Clear) Urine pH 7.0 (5-8) Ur Specific [place] 1.010 (1.005-1.025) Urine Protein Negative (Neg-Trace) mg/dL Urine Ketones 15 H (Negative) mg/dL Urine Blood Negative (Negative) Urine Nitrite Negative (Negative) Urine Bilirubin Negative (Negative) Urine Urobilinogen 0.2 (Up to 0.2) mg/dL Ur Leukocyte Esterase Negative (Negative) Urine Glucose Negative (Negative) mg/dL Intake and Output - 24 Hour Total 06/23/24 20:25 thru 06/24/24 01:02 Intake Total 500 Output Total 350 Balance 150 Weight 111.3 kg Intake: IV 500 Output: Urine 350 Other: Urine Appearance Clear # Voids 1 Falls Risk Assessment History of Falls Admit Due to Fall 06/24/24 01:02 Contributing Factors Unstable 06/24/24 01:02 Ambulatory Aids Independent 06/24/24 01:02 Tubes/Lines W/no contributing factors 06/24/24 01:02 Gait Evaluation W/no contributing factors 06/24/24 01:02 Cognition No cognitive impairment 06/24/24 01:02 Fall Total Score 48 06/24/24 01:02 Level of Risk Moderate Risk 06/24/24 01:02 Problems (Last Reviewed 06/14/24 @ 23:34 by Jyotsna Jon MD) Syncope (Acute) Hydrocephalus (Acute) Vertigo (Acute) Psoriatic arthritis (Acute) Atrial fibrillation (Chronic) Hypertension (Chronic) Notes 06/23/24 21:55 Nursing Notes by Sandra Gabriel Nursing Note: This RN gave report and transfer of care to Sweetie Renee RN at this time Initialized on 06/23/24 21:55 - END OF NOTE v v v v v v v v v Sending and/or Receiving Nurses: Please use comment section below to note any information pertinent to the patient hand-off not included above. Information / Comments: From ER. At home had episode of dizziness, unsteady on his feet around 9pm had a syncopal episode in the bathroom, brought in to ER. Had diarrhea when he fell according to pt. EKG sinus rhythm VSS afebrile. 18g in L AC Pt very weak at this time admit for observation and PT and OT to assess. Report from Kelly Renee APPLIANCE SERVICE TECHNICIAN. Report received from:
[2024-06-24] MEDS: Ondansetron O.D.T. 4 MG TABEF PO (07:28)
[2024-06-24] MEDS: Meclizine 25 MG TAB PO (07:29)
[2024-06-24] MEDS: Acetaminophen 500 MG TAB 1000 MG PO (08:29)
[2024-06-24] MEDS: Lisinopril 5 MG TAB PO (08:29)
[2024-06-24] MEDS: Apixaban 5 MG TAB PO (08:29)
[2024-06-24] MEDS: dilTIAZem CD 120 MG CAPCR PO (08:30)
[2024-06-24] MEDS: hydroCHLOROthiazide 12.5 MG TAB PO (08:30)
--- NOTE | 2024-06-24 08:50 | INITIAL_ITS ---
Date of service: 06/24/24 Time of Service: 08:53 Care Management Initial Assmt Initial Assessment Reason for Hospitalization: syncope Functional Status/Living Situation Patient Presentation: Bubba was lying in bed when CM met with him. He stated that he is not feeling well today; he is having sharp abdominal pain and diarrhea. His RN and provider are aware of these concerns. He stated that he is generally mostly independent at home with the support of his , who does all of the cooking, and helps him put on his socks. He lives in [place] with his , Jenny, as well as their daughter, son in law, two grandchildren, and two dogs. He stated that he has good support from his family, if needed. He reported that he does not feel that he will need services at home at this time. PT is consulted and will evaluate him today. CM will continue to follow. Town of Residence: [place] Resides with: Child (daughter, son in law, two grandchildren) and Spouse Natural Supports: , Jenny daughter, Kathi Employment Status: Retired Instrumental Activities of Daily Living (ADLs): Independent Medications Medication Management: No Issues/Barriers identified Advance Directives Advance Directives: Do you have an Advance Directive: AD On File at [facility]: N 08/11/23 09:55 Date Asked 06/12/24 06/10/24 11:43 AD Date Reviewed COLST On File at [facility] COLST Date Scanned Code Status Resuscitation Status Full Code Insurance Coverage/Financial Issues Insurance: BC/BS MCR replacement Care Team Visit Care Team Role Provider Type Quinn Bliss NP Primary Care Provider NURSE PRACTITIONER InPatient Francisco Thacker Other Providers OTHER Valery Rodriguez MD Emergency Provider [facility] STAFF PHYSICIAN Flo Epperson MD Admit Provider [facility] STAFF PHYSICIAN Attending Provider Discharge Potential Discharge Needs: PCP F/U Appt Anticipated Barriers to Discharge: None Identified Patient/Family Education Needs: Review discharge instructions, discuss Ask Me Three Transportation: Private vehicle Plan: Anticipate Bubba will return home when medically cleared. His will drive him home via private vehicle. He will follow up with his PCP and discharge plan of care. CM will continue to follow. 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 systolic function w/ an EF of 55%, mild left vent hypertrophy, mild dilated left atrium, diastolic dysfunction, no hemodynamically significant valve abnormalities Medical History TIA (transient ischemic attack) Surgical History Hx of cataract surgery (~2015) H/O total knee replacement (~2020) 07/19/2021 [facility]. -hb Family History Mother Dementia Heart disease Hypertension Father Cancer Brother Heart disease Hypertension Daughter Asthma Hypertension Son Heart disease Hypertension Social History Smoking/Tobacco Use Status: Never Second Hand Exposure: Yes Smoking risk assessment performed?: Yes Alcohol Intake: current Alcohol Intake frequency: a few times a month Alcohol type: beer Drug use: Rarely Substance use type: marijuana Adopted: No Caregiver/Support person: No Foster care: No Household members: spouse and family Housing: house Number of Children: 1 number of grandchildren: 2 Communication Needs: Corrective Lenses Do you need help understanding health information?: Never current occupation: retired Pets and animals: Yes Pets and animals: dog(s) Sexually active: No Do you think of yourself as: straight/heterosexual Current gender identity: male What is your relationship status?: How often do you talk on the phone with friends or family?: once per week How often do you get together with friends or relatives?: decline to answer How often do you attend episcopalian or adventism services?: decline to answer Do you belong to any clubs or organized social groups?: yes Panel score (0-1 are the most socially isolated patients): 2 What type of physical activity do you participate in: none Dawna/Mandaeism: None Special dawna needs: No Agree to transfusion: Yes Seatbelt use: always Helmet use: Yes Drive intox or ride w/intox 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 Working smoke detector in home: Yes Carbon monox detector in home: Yes Firearms in home: No Do you feel safe at home: Yes Do you feel safe in your relationship?: Yes Victim of physical abuse: No Victim of emotional abuse: No Victim of sexual abuse: No SDOH(Care Management) Screening Will the Patient Participate in the Screening?: Yes Do you worry about having a steady place to live?: no In the past 12 months, have you had to go without electric, gas, oil or water in your home?: no Have you or anyone in your house had to go without enough food to eat?: no Has lack of transportation kept you from medical appointments or from doing things needed for daily living?: no Has anyone in your support network made you feel unsafe for any reason?: no
--- NOTE | 2024-06-24 11:24 | W.PM.PROGNOT ---
Date of Service Date of service: 06/24/24 Time of Service: 11:24 Assessment and Plan Assessment and plan (1) Syncope: Status: Acute Assessment and plan: -Cont to monitor for now -not orthostatic (2) Hydrocephalus: Status: Acute Assessment and plan: He has had chronic hydrocephalus and can have headaches. He did move up from [place] and has been referred to Neurology -Referred to outpatient Neurology -Cont to monitor for now (3) Vertigo: Status: Acute Assessment and plan: He has a history of vertigo and has been referred to outpatient neurology. He is on Meclizine 25mg prn -Cont w/ Meclizine prn (4) Atrial fibrillation: Status: Chronic Assessment and plan: -Cont w/ Diltiazem 120mg daily -Cont w/ Eliquis 5mg bid (5) Hypertension: Status: Chronic Assessment and plan: -Cont w/ Lisinopril 5mg daily -COnt w/ HCTZ 12.5mg daily -Cont w/ Diltiazem 120mg daily (6) Psoriatic arthritis: Status: Acute Assessment and plan: -Cont w/ Etanercept 50mg sq weekly Subjective Subjective Patient reports: no new complaints, feels better, tolerating liquids well, tolerating a regular diet, voiding w/o difficulty, no flatus and afebrile; denies nausea or vomiting Objective Last Vital Signs Temp 36.8 C 06/24/24 07:44 Pulse 70 06/24/24 10:12 Resp 15 06/24/24 07:51 BP 151/85 H 06/24/24 10:12 Pulse Ox 96 06/24/24 07:51 Laboratory Results - last 24 hr 06/23/24 06/23/24 06/23/24 20:43 22:09 23:45 WBC 8.41 RBC 4.23 L Hgb 14.2 Hct 41.0 MCV 97 H MCH 33.6 H MCHC 34.6 RDW 12.4 Plt Count 253 MPV 9.0 Immature Gran % 0.2 Neutrophils % 58.0 Lymphocytes % 28.2 Monocytes % 10.6 Eosinophils % 2.4 Basophils % 0.6 Nucleated RBC % 0.0 Absolute Neutrophils 4.88 Absolute Lymphocytes 2.37 Absolute Monocytes 0.89 H Absolute Eosinophils 0.20 Absolute Basophils 0.05 VBG Lactate 1.2 Sodium 139 Potassium 3.3 L Chloride 102 Carbon Dioxide 27.0 Anion Gap 10.0 BUN 19 H Creatinine 1.1 Est GFR (CKD-EPI 2020) 69.57 Glucose 133 H Calcium 9.3 Magnesium 2.0 Total Bilirubin 0.30 AST 18 ALT 26 Alkaline Phosphatase 59 Troponin I 6 7 Total Protein 7.6 Albumin 3.8 TSH 1.49 Urine Color Yellow Urine Clarity Clear Urine pH 7.0 Ur Specific [place] 1.010 Urine Protein Negative Urine Ketones 15 H Urine Blood Negative Urine Nitrite Negative Urine Bilirubin Negative Urine Urobilinogen 0.2 Ur Leukocyte Esterase Negative Urine Glucose Negative PAWSS Have you Been Recently Intoxicated or Drunk Within the Last 30 days?: No Have you Ever Experienced Previous Episodes of Alcohol Withdrawal?: No Have you ever Experienced Withdrawal Seizures?: No Have you ever Experienced Delirium Tremens(DT)s?: No Have you ever undergone Alcohol Rehabilitation Treatment (i.e, inpt ot outpatient treatment programs)?: No Have you ever Experienced Blackouts?: No Have you ever Combined Alcohol with other Downers within the last 90 days?: No Have you ever Combined Alcohol with any other Substance of Abuse during the last 90 days?: No Positive Blood Alcohol level on Presentation? [PCS.BAL]: No Evidence of Increased Autonomic Activity (i.e. HR>120, tremor, sweating, agitation, nausea)?: No Result: 0
[2024-06-24 12:07] LABS: Abs Immature Grans 0.04 10^3/uL (0.0-0.06); Absolute Basophil Count 0.03 10^3/uL (0.0-0.2); Absolute Eosinophil Count 0.03 10^3/uL (0.0-0.7); Absolute Monocyte Count 0.58 10^3/uL (0.1-0.8); Absolute Neutrophil Count 6.77 10^3/uL (1.2-6.7); Basophils % 0.4 %; Eosinophils % 0.4 %; HCT 42.8 % (40.0-50.0); HGB 14.9 g/dL (13.5-17.5); Immature Grans % 0.5 %; Lymphocytes % 11.8 %; MCH 33.7 pg (27.0-33.0); MCHC 34.8 % (32.0-36.0); MCV 97 fL (80-95); Monocytes % 6.9 %; Platelet Count 254 10^3/uL (130-400); RBC 4.42 10^6/uL (4.36-5.78); RDW 12.3 % (11.8-14.1); RDW-SD 44.3 fL; WBC 8.45 10^3/uL (4.4-10.8)
[2024-06-24] MEDS: Potassium Chloride 20 MEQ TABCR 40 MEQ PO (12:12)
--- NOTE | 2024-06-24 12:13 | IN_ITS ---
Date of service: 06/24/24 Time of Service: 11:35 PT Notes Visit Reasons: Syncope Inpatient Physical Therapy Evaluation Date: June 24, 2024 Referring Doctor: Flo Epperson PT Orders: PT CONSULT: limited ability Precautions: Standard, Falls Patient Profile/Admitting Diagnosis: Bubba is a 74 year old male w/ acute onset of abdominal pain, nausea, vomiting and non-bloody diarrhea which began acutely last night resulting in syncope while in the bathroom and then had three other repeat episodes. Brought to the ED via ambulance. PMHX: (Updated 06/24/24 @ 00:11 by Flo Epperson MD) Syncope (Acute) Memory changes (Acute) Low back pain (Acute) Abnormal gait (Acute) Plantar fasciitis of right foot (Acute) Weakness (Acute) Hydrocephalus (Acute) Vertigo (Acute) Immunodeficiency (Chronic) secondary to enbrel useObstructive sleep apnea (Chronic) Uses CPAPHyperlipidemia (Acute) Atherosclerosis of aorta (Acute) BMI 36.0-36.9,adult (Acute) Prediabetes (Acute) Depression (Chronic) Erectile dysfunction (Acute) BPH (benign prostatic hyperplasia) (Chronic) Psoriatic arthritis (Acute) Spinal stenosis (Acute) lumbar region w/ neurogenic claudicationAtrial fibrillation (Chronic) Hypertension (Chronic) 10/02/22- Echo reveals normal left vent. systolic function w/ an EF of 55%, mild left vent hypertrophy, mild dilated left atrium, diastolic dysfunction, no hemodynamically significant valve abnormalities Medical History TIA (transient ischemic attack) Surgical History Hx of cataract surgery (~2015) H/O total knee replacement (~2020) 07/19/2021 [facility]. -hb Social History/Home Situation: Lives in [place] in a private home with his , daughter, son in law and grandchildren. Current Functional Limitations: decreased activity tolerance, unsteady gait with use of SPC or walker Equipment Owned/DME: walker, SPC Subjective: Bubba notes that he continues to have abdominal pain. Notes mild dizziness. Notes that the dizziness comes and goes however does not seem to change upon positional change. Objective: General Observation: IV access right/left UE Mental Status: Alert and oriented x3. Very pleasant Pain: 5/10 Vital Signs: Monitored via nursing ROM: Right Upper Extremity: Demonstrates WFL AROM R UE Left Upper Extremity: Demonstrates WFL AROM L UE Right Lower Extremity: Demonstrates WFL AROM R LE with limited ankle DF Left Lower Extremity: Demonstrates WFL AROM L LE Strength: Right Upper Extremity: Demonstrates good functional strength R UE Left Upper Extremity: Demonstrates good functional strength L UE Right Lower Extremity: Hip flexion 4/5, knee extension 4+/5, knee flexion 4/5, DF 4/5 Left Lower Extremity: Hip flexion 4/5, knee extension 4+/5, knee flexion 4/5, DF 4/5 Bed Mobility/Transfers: Supine-sit: Independent Sit-stand: CGA with FWW Stand-sit: CGA Gait: With use of FWW ambulated from bed to door then back. Upon turning en bloc turning noted. Upon return to bed short choppy steps with cueing normal vaishnavi. CGA Balance: Static Sitting: Good Dynamic Sitting: Good Static Standing: Good Dynamic Standing: Fair Special Tests: Mobility Limitations Standardized Measure [facility] 6 clicks Basic Mobility Inpatient Short Form: Raw Score: 20 CMS Score: 36 % Informed Consent/Education: Patient instructed in purpose of PT consult and plan of care. Assessment: Patient is a 74 year old male referred to physical therapy services with the diagnosis of syncope. Patient presents with clinical signs and symptoms consistent with diagnosis, as demonstrated by the following impairment level findings: Decreased functional endurance, decreased balance, decreased and altered gait requiring use of assistive device, mild lower extremity weakness. Impairments are contributing to the following functional limitations: Unsteady gait, difficulty with stair negotiation, weakness, requires upper extremity assist for functional transfers Patient is assessed as a Moderate 44446 complexity based on the following: History: As above Examination: As above Presentation: Evolving Decision Making: Moderate Goals: Goals X1 week 1. Supine-Sit independent 2. Sit-Supine independent 3. Sit-Stand independent 4. Stand-Sit independent 5. Bed-Chair independent with front wheeled walker 6. Chair-Bed independent with front wheeled walker 7. Gait independent with front wheeled walker 200 feet or greater 8. Stairs ascend/descend flight of stairs Plan of Care/Treatment Plan: 1-2x/day, 7 days/week x 1 week. Plan of care has been reviewed with the EMPLOYEE TRAINING SPECIALIST providing the service under Physical Therapy direction. Initiate Physical Therapy intervention for strengthening, bed mobility, transfers, gait, stairs, balance training, use of assistive device. DISCHARGE RECOMMENDATIONS: Home home health services versus outpatient PT TREATMENT CODE/TIME:68315, 35 minutes, IE, 11:35 am INESSA Tirado [facility] Please sign an return this page within 30 days if you agree with the above POC. Thank you! Physician Signature Date [facility] Disclaimer: This note was created using logolineup voice recognition software. It was reviewed for major content. However, there may be multiple small discr epancies and errors due to the voice recognition aspects of the software.
[2024-06-24 12:22] LABS: ALT 21 U/L (16-63); AST 16 U/L (15-37); Albumin 3.6 g/dL (3.4-5.0); Alkaline Phosphatase 63 U/L (46-116); Anion Gap 11.5 mmol/L (3-11); BUN 11 mg/dL (7-18); Bilirubin, Total 0.48 mg/dL (0.2-1.0); CO2 26.5 mmol/L (21.0-32.0); CREATININE 0.9 mg/dL (0.70-1.30); Chloride 104 mmol/L (98-107); Estimated GFR 88.51 (mL/min/1.73m2); Glucose 130 mg/dL (74-106); Potassium 3.7 mmol/L (3.5-5.1); Sodium 142 mmol/L (136-145); Total Protein 7.8 g/dL (6.4-8.2)
--- NOTE | 2024-06-24 12:34 | PHA.REVIEW2 ---
Pharmacy Admission Review Admission Clinical Review Admission Pharmacy Review: Syncope (Acute) Hydrocephalus (Acute) Vertigo (Acute) Psoriatic arthritis (Acute) [id number] Reductase Inhibitor Adverse Reaction (Intermediate, Verified 06/23/24 20:39) myalgias Resuscitation Status Full Code Height 5 ft 7 in Weight 111.3 kg Comments Comments/Follow Ups: Hx vertigo, possibly had vaso-vagal event s/p diarrhea, will have PT eval on Tuesday No nausea, but c/o abdominal discomfort, bloating Pharmacy Admission Review Renal Dosing Renal Dosing: BUN 11 mg/dL (7-18) 06/24/24 12:00 Creatinine 0.9 mg/dL (0.70-1.30) 06/24/24 12:00 CrCl~74.8ml/min Anticoagulation Anticoagulation: Hgb 14.9 g/dL (13.5-17.5) 06/24/24 12:00 Hct 42.8 % (40.0-50.0) 06/24/24 12:00 Plt Count 254 10^3/uL (130-400) 06/24/24 12:00 Creatinine 0.9 mg/dL (0.70-1.30) 06/24/24 12:00 Therapeutic Anticoagulation: Reviewed Medications: Apixaban (Home dose for A-fib) Opiate Usage Evaluate Pain Scale/Pains Meds: N/A (Pain 3/10-using plain APAP) Relevant Labs Relevant Labs: Sodium 142 mmol/L (136-145) 06/24/24 12:00 Potassium 3.7 mmol/L (3.5-5.1) 06/24/24 12:00 Chloride 104 mmol/L (98-107) 06/24/24 12:00 Magnesium 2.0 mg/dL (1.8-2.4) 06/24/24 12:00 Electrolytes, C-Reactive P, ESR: Reviewed (Potassium repleted orally) DM Control DM Control: N/A Cardiac Review Cardiac Review: Troponin I 7 ng/L (<or=76) 06/23/24 22:09 BP, HR, EF%: Reviewed (BP 135/75, HR 77, afebrile) Home Meds Home Med List reviewed: Intervened (Enbrel inj weekly, asked RN to find out what day of the week patient administers, would be patient's own med) Current Meds Current Medication Order Review: Reviewed Comments: BP meds: Lisinopril, Diltiazem, HCTZ Meclizine prn for vertigo, Zofran ordered scheduled, Q8h Comments Comments/Follow Ups: Hx vertigo, possibly had vaso-vagal event s/p diarrhea, will have PT eval on Tuesday No nausea, but c/o abdominal discomfort, bloating
--- NOTE | 2024-06-24 15:06 | DSE_ITS ---
Date of service: 06/24/24 Time of Service: 15:24 DS: Diagnosis Discharge Diagnosis (1) Syncope: Status: Acute (2) Hydrocephalus: Status: Acute (3) Vertigo: Status: Acute (4) Atrial fibrillation: Status: Chronic (5) Hypertension: Status: Chronic (6) Psoriatic arthritis: Status: Acute Discharge Plan Disposition Patient Disposition: Home Condition: Good Discharge Details Reason For Visit: Syncope Admit Date/Time: 06/24/24 00:20 Admit Provider: Flo Epperson Attending Provider: Flo Epperson Primary Care Provider: Quinn Solis Hospital Course Hospital Course: This is a 74 year old male patient who presented to the [facility] ED for evaluation of acute onset of syncope, accompanied by lightheadedness, nausea, and vomiting, following severe abdominal pain and diarrhea after eating a THC cookie made by his neighbor. He reported that while sitting on the toilet, he experienced a syncopal episode, during which he lost consciousness but was caught by family members. The patient has a history of syncope but denied any chest pain or palpitations prior to the episode. No recent illness or antibiotic use. On examination, the patient was alert and oriented to person, place, and time. Vital signs were stable, and laboratory results returned normal. An EKG showed normal sinus rhythm. The patient exhibited slight weakness in the right lower extremity compared to the left, a chronic issue following a knee replacement years prior. No fever, chills, night sweats, dysarthria, dysphagia, or respirato ry distress were noted. Assessment and Plan: * Syncope: The patient experienced multiple syncopal episodes attributed to possible vasovagal syncope, likely triggered by abdominal pain and diarrhea after having eaten a THC cookie. He was monitored on telemetry during his hospital stay. The patient did not exhibit orthostatic changes. * Abdominal Pain and Diarrhea: Acute abdominal pain, nausea, and non-bloody diarrhea were managed conservatively. The patient was advised to maintain hydration and electrolyte balance. Theses symptoms resolved spontaneously, without intervention. Patient did eat lunch and had no further complaints. * Follow-Up: CT scans revealed no significant acute findings. The plan was to reassess the patient?s status, including orthostatic vital signs in the morning and reevaluation of intravenous fluid administration. Upon stabilization and no further complications, he was discharged to home with his of 52 years, with instructions to follow up with his primary care physician. Recommendations: * Monitor for any recurrent symptoms and seek immediate medical attention if necessary. * Maintain hydration and consider dietary modifications if gastrointestinal symptoms persist. * Continue home medications. * Follow up with cardiology regarding the history of syncope and any further diagnostic work-up. Patient and in agreement with plan of care. Patient is a full code. Home Meds and New Rx's Prescriptions: Continued lisinopril 5 mg tablet 5 mg PO DAILY Qty: 90 4RF hydrochlorothiazide 12.5 mg tablet 12.5 mg PO DAILY Qty: 90 4RF diltiazem HCl 120 mg capsule,extended release 24 hr 120 mg PO DAILY Qty: 90 4RF Eliquis 5 mg tablet 5 mg PO BID Qty: 180 4RF meclizine 25 mg tablet 25 mg PO DAILY PRN (Reason: dizziness) Qty: 30 0RF ondansetron 4 mg tablet,disintegrating 4 mg PO Q8H PRN multivitamin Tablet 1 tab PO DAILY B-complex with vitamin C Capsule 1 cap PO DAILY acetaminophen [Tylenol] 325 mg capsule 325 mg PO Q6H PRN Enbrel Mini 50 mg/mL (1 mL) cartridge 50 mg subcut QWEEK Qty: 4 12RF Discharge Instructions Instructions: Syncope (Fainting) (DC), Vasovagal Response (DC) Additional Instructions: Continue home medications. Do not eat anymore cookies from the same batch as the cookie that may have lead to your vomiting and diarrhea. Advance diet slowly. Stand Alone Forms: Nursing Discharge Form Referrals: Quinn Solis NP [Primary Care Provider] - (1-2 weeks post hospitalization) Activity:: Activity as Tolerated Equipment/Supplies:: No Equipment Needed Diet:: As Tolerated Discharge Orders Discharge Orders: Discharge Order (Routine); Ordered 06/24/24 Ordered By: Yoselin Rainey DS: Summary Time Spent with Patient providing and/or coordinating discharge services: Greater than 30 minutes Status at Discharge Functional status at discharge: uses cane/walker Overall status at discharge: patient is back to baseline Mental Status: mental status grossly normal Speech and Movement: speech and movement normal Mood: congruent mood Affect: normal affect Quality:SDOH Health Related Social Needs: No Data to Display Exam Const General: cooperative, healthy appearing, comfortable, no acute distress and well developed Orientation: alert, awake and oriented x3 HENMT Head: normal to inspection Ears: hearing grossly normal bilaterally General nose exam: external nose normal Face and sinus: normal facial exam Eyes General: appearance normal, both eyes and all related structures Alignment and Position: alignment normal Periorbital: periorbital findings normal Eyelids: eyelids normal Conjunctivae: conjunctivae normal Sclera: sclerae normal EOM: EOM intact bilaterally Neck Neck: normal visual inspection and no lymphadenopathy Chest Chest: normal inspection of the chest Resp Effort & Inspection: normal respiratory effort Auscultation: clear to auscultation bilaterally Cardio Rate: regular rate Rhythm: regular rhythm Heart Sounds: S1 normal and S2 normal GI Inspection: normal to inspection Palpation: soft Percussion: normal to percussion Auscultation: normal bowel sounds Skin General skin exam: no rashes or lesions noted Neuro General: patient alert, patient awake, patient oriented x3, no focal motor deficits and CN's II-XI intact bilaterally Other: RUE distal 5/5 LUE distal 5/5 RLE proximal 4-/5 (chronic) RLE distal 4-/5 (chronic) LLE proximal 4/5 LLE distal 4/5 Extrem General: normal to inspection Psych Appearance: grossly normal Mental Status: mental status grossly normal Speech and Movement: speech and movement normal Mood: congruent mood Affect: normal affect DS: Data Vitals/I&O Vitals and I&O: Vital Signs Temperature 36.8 C 06/24/24 07:44 Temperature Source Tympanic 06/24/24 07:51 Pulse 66 06/24/24 14:56 Pulse Rhythm Irregular 06/24/24 01:02 Respiratory Rate 15 06/24/24 07:51 Respiratory Effort Normal 06/24/24 01:02 Respiratory Depth Normal 06/24/24 01:02 Respiratory Pattern Normal 06/24/24 01:02 Blood Pressure 119/64 06/24/24 14:56 Pulse Oximetry 96 06/24/24 07:51 Oxygen Delivery Method Room Air 06/24/24 07:51 Oxygen Flow Rate 0 06/24/24 07:51 Pain Level 3 06/24/24 09:29 Comment RN in room 06/24/24 07:51 Intake & Output 06/23/24 06/24/24 06/24/24 23:59 11:59 23:59 Intake Total 500 / 500 100 / 100 Output Total 2500 / 2500 Balance 500 / 500 -2400 / -2400 Weight 110.5 kg 111.3 kg Intake: IV 500 / 500 Oral 100 / 100 Output: Urine 2500 / 2500 Other: Urine Color Yellow Urine Appearance Clear Urine Odor Normal Stool Size Small Stool Characteristics Soft Brown Voiding Methods Toilet # Voids 1 Data Completed and Pending Labs on day of discharge: Labs from last 24 hours 06/24/24 06/23/24 06/23/24 12:00 23:45 22:09 WBC 8.45 RBC 4.42 Hgb 14.9 Hct 42.8 MCV 97 H MCH 33.7 H MCHC 34.8 RDW 12.3 Plt Count 254 MPV 9.0 Immature Gran % 0.5 Neutrophils % 80.0 Lymphocytes % 11.8 Monocytes % 6.9 Eosinophils % 0.4 Basophils % 0.4 Nucleated RBC % 0.0 Absolute Neutrophils 6.77 H Absolute Lymphocytes 1.00 L Absolute Monocytes 0.58 Absolute Eosinophils 0.03 Absolute Basophils 0.03 VBG Lactate Sodium 142 Potassium 3.7 Chloride 104 Carbon Dioxide 26.5 Anion Gap 11.5 H BUN 11 Creatinine 0.9 Est GFR (CKD-EPI 2020) 88.51 Glucose 130 H Calcium 9.0 Magnesium 2.0 Total Bilirubin 0.48 AST 16 ALT 21 Alkaline Phosphatase 63 Troponin I 7 Total Protein 7.8 Albumin 3.6 TSH Urine Color Yellow Urine Clarity Clear Urine pH 7.0 Ur Specific [place] 1.010 Urine Protein Negative Urine Ketones 15 H Urine Blood Negative Urine Nitrite Negative Urine Bilirubin Negative Urine Urobilinogen 0.2 Ur Leukocyte Esterase Negative Urine Glucose Negative 06/23/24 20:43 WBC 8.41 RBC 4.23 L Hgb 14.2 Hct 41.0 MCV 97 H MCH 33.6 H MCHC 34.6 RDW 12.4 Plt Count 253 MPV 9.0 Immature Gran % 0.2 Neutrophils % 58.0 Lymphocytes % 28.2 Monocytes % 10.6 Eosinophils % 2.4 Basophils % 0.6 Nucleated RBC % 0.0 Absolute Neutrophils 4.88 Absolute Lymphocytes 2.37 Absolute Monocytes 0.89 H Absolute Eosinophils 0.20 Absolute Basophils 0.05 VBG Lactate 1.2 Sodium 139 Potassium 3.3 L Chloride 102 Carbon Dioxide 27.0 Anion Gap 10.0 BUN 19 H Creatinine 1.1 Est GFR (CKD-EPI 2020) 69.57 Glucose 133 H Calcium 9.3 Magnesium 2.0 Total Bilirubin 0.30 AST 18 ALT 26 Alkaline Phosphatase 59 Troponin I 6 Total Protein 7.6 Albumin 3.8 TSH 1.49 Urine Color Urine Clarity Urine pH Ur Specific [place] Urine Protein Urine Ketones Urine Blood Urine Nitrite Urine Bilirubin Urine Urobilinogen Ur Leukocyte Esterase Urine Glucose PFSH All Active Problems (Updated 06/24/24 @ 00:11 by Flo Epperson MD) Syncope (Acute) Memory changes (Acute) Low back pain (Acute) Abnormal gait (Acute) Plantar fasciitis of right foot (Acute) Weakness (Acute) Hydrocephalus (Acute) Vertigo (Acute) 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 systolic function w/ an EF of 55%, mild left vent hypertrophy, mild dilated left atrium, diastolic dysfunction, no hemodynamically significant valve abnormalities Medical History TIA (transient ischemic attack) Surgical History Hx of cataract surgery (~2015) H/O total knee replacement (~2020) 07/19/2021 [facility]. -hb Family History Mother Dementia Heart disease Hypertension Father Cancer Brother Heart disease Hypertension Daughter Asthma Hypertension Son Heart disease Hypertension Social History Smoking/Tobacco Use Status: Never Second Hand Exposure: Yes Smoking risk assessment performed?: Yes Alcohol Intake: current Alcohol Intake frequency: a few times a month Alcohol type: beer Drug use: Rarely Substance use type: marijuana Adopted: No Caregiver/Support person: No Foster care: No Household members: spouse and family Housing: house Number of Children: 1 number of grandchildren: 2 Communication Needs: Corrective Lenses Do you need help understanding health information?: Never current occupation: retired Pets and animals: Yes Pets and animals: dog(s) Sexually active: No Do you think of yourself as: straight/heterosexual Current gender identity: male What is your relationship status?: How often do you talk on the phone with friends or family?: once per week How often do you get together with friends or relatives?: decline to answer How often do you attend anabaptist or islam services?: decline to answer Do you belong to any clubs or organized social groups?: yes Panel score (0-1 are the most socially isolated patients): 2 What type of physical activity do you participate in: none Dawna/Sikh: None Special dawna needs: No Agree to transfusion: Yes Seatbelt use: always Helmet use: Yes Drive intox or ride w/intox stock car driver: No Working smoke detector in home: Yes Carbon monox detector in home: Yes Firearms in home: No Do you feel safe at home: Yes Do you feel safe in your relationship?: Yes Victim of physical abuse: No Victim of emotional abuse: No Victim of sexual abuse: No Time Spent with Patient Time Spent with Patient: 45-69 minutes Time was spent: preparing to see the patient(eg.review tests), ordering medications,tests, procedures, referring, communicating with other health caregivers homecare, indepentently interpreting results, counseling the patient and care coordination
--- NOTE | 2024-06-24 18:32 | NUR.NOTE ---
Per Dr. Rodriguez; [facility] read the stones in the kidneys but they missed the stone in the bladder; largest. Ureters not dilated. Have ED provider read the report and can call with any questions. Nursing Note:
== END 2024-06-24 15:32 | disposition home or self-care (01) ==
LOC: ER 06-24 00:29 → MS 06-24 00:55
PROVIDERS: Nurse Practitioner Family; Physician Assistant; Admitting Provider Student in an Organized Health Care Education/Training Program; Emergency Provider Student in an Organized Health Care Education/Training Program; PCP Nurse Practitioner Family; Visit Provider Student in an Organized Health Care Education/Training Program
DX: R55 Syncope and collapse (principal); G91.9 Hydrocephalus, unspecified; I48.91 Unspecified atrial fibrillation; I10 Essential (primary) hypertension; L40.50 Arthropathic psoriasis, unspecified; R11.2 Nausea with vomiting, unspecified; R10.9 Unspecified abdominal pain; R19.7 Diarrhea, unspecified; Z79.899 Other long term (current) drug therapy; Z79.69 Long term (current) use of other immunomodulators and immunosuppressants; R41.3 Other amnesia; M54.50 Low back pain, unspecified; R53.1 Weakness; D84.821 Immunodeficiency due to drugs; N40.0 Benign prostatic hyperplasia without lower urinary tract symptoms; M48.062 Spinal stenosis, lumbar region with neurogenic claudication; Z86.73 Personal history of transient ischemic attack (TIA), and cerebral infarction without residual deficits; G47.33 Obstructive sleep apnea (adult) (pediatric); E78.5 Hyperlipidemia, unspecified; I70.0 Atherosclerosis of aorta; R73.03 Prediabetes
CPT/HCPCS: 00123; 74177; 80053; 93005; 96360; 97162; 99285; 70450; 71260; 81003; 83605; 83735; 84443; 84484; 85025; 93010; 99222; 99239; G0378; J3490

== ENCOUNTER 2024-07-04 02:19 | Outpatient (CLI) | payer MEDICARE, SELFPAY ==
--- NOTE | 2024-07-04 07:15 | DI.MRI_ITS ---
Exam(s) MR CERVICAL SPINE WO EXAM: MR CERVICAL SPINE WO CLINICAL HISTORY: abnl gait, r26.9, ? myelopathy TECHNIQUE: Multiplanar multisequence MRI of the cervical spine was performed without intravenous con trast. COMPARISON: CT CT HEAD CERVICAL SPINE WO from 06/14/2023 FINDINGS: BONES: Vertebral body heights are maintained. Intervertebral disc spaces are normal. Alignment is nor mal. Bone marrow signal intensity is within normal limits. CERVICAL CORD: Craniovertebral junction is unremarkable. The cervical cord is normal size and signal intensity. SOFT TISSUES: Unremarkable. C2-3: No disc herniation or bulge is identified. No significant central spinal canal or neural forami nal stenosis. C3-4: No disc herniation or bulge is identified. There are degenerative changes seen in the left unco vertebral joint causing moderate left neural foraminal stenosis. No significant central spinal canal or right neural foraminal stenosis is present. C4-5: There is mild prominence of the disc at this level. No significant central spinal canal stenos is is seen. There are degenerative changes seen at the left uncovertebral joint causing moderate lef t neural foraminal stenosis. No significant right neural foraminal stenosis is present. C5-6: No disc herniation or bulge is identified. No significant central spinal canal or neural forami nal stenosis C6-7: No disc herniation or bulge is identified. No significant central spinal canal or neural forami nal stenosis C7-T1: No disc herniation or bulge is identified. No significant central spinal canal or neural kathy inal stenosis IMPRESSION: 1. No evidence of central spinal canal stenosis. 2. Normal signal in the spinal cord. 3. Degenerative changes in the cervical spine resulting in moderate left neural foraminal stenosis at L3-4 and L4-L5. DATA REPOSITORY:
--- NOTE | 2024-07-04 07:15 | DI.MRI_ITS ---
Exam(s) MR BRAIN WO EXAM: MR BRAIN WO CLINICAL HISTORY: hydrocephalus,G91.9 TECHNIQUE: Multiplanar multisequence MRI of the brain was performed. COMPARISON: CT CT HEAD WO from 06/23/2024 FINDINGS: CEREBRAL PARENCHYMA: There is no evidence of intracranial hemorrhage, mass effect, or shift of midline structures. There are no extra-axial fluid collections. Ventricular size is prominent but unchanged There is no significant focal signal abnormality in the cerebellar hemispheres nor within the rosamaria, m idbrain, and thalami. There is abundant bilateral relatively symmetrical periventricular signal abnormality consistent with chronic small vessel disease. There is no associated hemorrhage, edema, nor restricted diffusion to suggest acute ischemic event. PITUITARY GLAND: No mass nor parasellar abnormality. No obvious abnormality in the cavernous sinuses. FLOW VOIDS: The expected flow void are noted. No evidence of obvious aneurysm nor obvious vascular ma lformation. PARANASAL SINUSES: The visualized paranasal sinuses appear unremarkable. The frontal sinuses are aga in noted to be capacious but within normal limits. ORBITS: Prior bilateral cataract surgery. IMPRESSION: Abundant bilateral periventricular signal abnormality consistent with chronic small vessel disease, c ommensurate with what is seen on recent CT scan of 06/23/2024. No evidence of acute territorial nor lacunar infarct. No significant acute findings in the cerebellar hemispheres (see CT report) Ventricular size is again noted be slightly prominent but unchanged and probably commensurate with th e size of the overlying cortical sulci. DATA REPOSITORY:
== END 2024-07-04 02:39 ==
LOC: DI 02:19
PROVIDERS: PCP Nurse Practitioner Family; Visit Provider Psychiatry & Neurology Neurology
DX: M48.062 Spinal stenosis, lumbar region with neurogenic claudication (principal); R26.9 Unspecified abnormalities of gait and mobility; G91.9 Hydrocephalus, unspecified
CPT/HCPCS: 70551; 72141

== ENCOUNTER → 2024-08-16 12:05 | Outpatient (BNVA) | payer MEDICARE, SELFPAY | PROVIDERS: PCP Nurse Practitioner Family; Referring Provider Nurse Practitioner Family; Visit Provider Psychiatry & Neurology Neurology | DX: G91.9 Hydrocephalus, unspecified (principal); R26.9 Unspecified abnormalities of gait and mobility; M54.50 Low back pain, unspecified; M48.062 Spinal stenosis, lumbar region with neurogenic claudication; R41.3 Other amnesia | CPT/HCPCS: 99214 ==

== ENCOUNTER 2024-09-17 14:48 | Outpatient (REF) | payer MEDICARE, SELFPAY ==
[2024-09-17 21:27] LABS: Bilirubin Negative (Negative); Blood Negative (Negative); Clarity Clear (Clear); Glucose Negative (Negative); Ketones Negative (Negative); Leukocyte Esterase Negative (Negative); Nitrite Negative (Negative); Urobilinogen 0.2 mg/dL (Up to 0.2); pH 5.5 (5-8)
== END 2024-09-17 14:49 | disposition home or self-care (01) ==
LOC: LBN 14:48
PROVIDERS: PCP Nurse Practitioner Family; Visit Provider Nurse Practitioner Family
DX: R41.3 Other amnesia (principal); R26.9 Unspecified abnormalities of gait and mobility; R53.1 Weakness; E78.5 Hyperlipidemia, unspecified; R73.03 Prediabetes; M48.00 Spinal stenosis, site unspecified; M54.50 Low back pain, unspecified
CPT/HCPCS: 81003

== ENCOUNTER 2024-10-03 14:32 | Emergency (ER) | payer MEDICARE, SELFPAY ==
[2024-10-03] VITALS (31 sets, daily range): BP systolic 128–166; BP diastolic 75–105; PULSE 63–95; RESP 12–22; TEMP 36.6; O2SAT 94–98
--- NOTE | 2024-10-03 14:15 | RT.EKG_ITS ---
APPROVED REPORT Exam: Resting ECG Reason for Exam: syncope Patient Location: E HR:81 bpm ECG Measurements Heart Rate 81 AXIS MO 132 P 73 QRSd 86 QRS 41 QT 383 T 3 QTc 445 Conclusion Sinus rhythm...normal P axis, V-rate 60- 99
--- NOTE | 2024-10-03 15:00 | DI.CT_ITS ---
Exam(s) CT HEAD WO EXAM: CT HEAD WO CLINICAL HISTORY: headache, n/v. TECHNIQUE: Imaging Protocol: Axial computed tomography images with coronal and sagittal reformatted images were created and reviewed COMPARISON: CT CT HEAD WO from 06/23/2024 FINDINGS: Ventricles and Extra axial spaces: Normal in size and morphology for the degree of atrophy. Unchange d. Hemorrhage: None. Cerebral parenchyma: Atrophy. White matter changes consistent with small vessel disease. Midline shift: None. Brainstem/Cerebellum: Normal. Calvarium: Normal. Visualized Paranasal sinuses/Mastoids: Mucosal thickening mucous retention within the ethmoid sinuses , more prominent when compared with the prior exam. Mucous retention in the left maxillary sinus. M ild mucosal thickening of the frontal and sphenoid sinuses. IMPRESSION: No acute intracranial abnormality.Chronic sinus disease. No bony destruction or air-fluid levels. RADIATION DOSE DELIVERED: Total DLP Total DLP DATA REPOSITORY: All CT scans at this facility are submitted to the National Radiology Data Registry (NRDR) Dose Index Registry (DIR) with the [employer] ([employer]). RADIATION OPTIMIZATION: All CT scans at this facility use at least one of these dose optimization te chniques: automated exposure control; mA and/or kV adjustment per patient size (includes targeted exa ms where dose is matched to clinical indication); or iterative reconstruction.
--- NOTE | 2024-10-03 15:00 | DI.RAD_ITS ---
Exam(s) XR CHEST 2V PA LATERAL EXAM: XR CHEST 2V PA LATERAL CLINICAL HISTORY: cough TECHNIQUE: 2D digital imaging was performed. Two views. COMPARISON: No exams were available for comparison FINDINGS: HEART: Normal size. Aorta: Not dilated. PULMONARY VASCULATURE: Normal. MEDIASTINUM: Unremarkable. LUNGS: Clear. PLEURAL SPACE: No pleural effusion or pneumothorax. BONE:Unremarkable for age. SOFT TISSUES: Unremarkable. IMPRESSION: No acute abnormality. DATA REPOSITORY: RADIATION DOSE DELIVERED:
--- NOTE | 2024-10-03 15:22 | W.ED.GENAD ---
Discharge Plan Disposition Patient Disposition: Home Condition: Stable Discharge Details Clinical Impression: Light-headed, COVID, Hypomagnesemia Primary Care Provider: Quinn Solis ED Provider: Eduardo Howell Home Meds and New Rx's Prescriptions: Continued meclizine 25 mg tablet 25 mg PO DAILY PRN (Reason: dizziness) Qty: 30 0RF carbidopa-levodopa [Sinemet] 10-100 mg tablet 1 tab PO TID Qty: 30 0RF Patient Comments: new med that he hasn't started yet Rx Instructions: Start with 0.5 tab TID with meals. May increase to 1 full tab with breakfast after 1 week, then 1 full tab after another 1 week, then increase to 1 tab TID with meals Eliquis 5 mg tablet 5 mg PO BID Qty: 180 4RF diltiazem HCl 120 mg capsule,extended release 24 hr 120 mg PO DAILY Qty: 90 4RF Enbrel Mini 50 mg/mL (1 mL) cartridge 50 mg subcut QWEEK Qty: 4 12RF hydrochlorothiazide 12.5 mg tablet 12.5 mg PO DAILY Qty: 90 4RF Patient Comments: patient unsure if he takes this lisinopril 5 mg tablet 5 mg PO DAILY Qty: 90 4RF ondansetron 4 mg tablet,disintegrating 4 mg PO Q8H PRN rosuvastatin 20 mg tablet 20 mg PO DAILY Qty: 90 4RF multivitamin Tablet 1 tab PO DAILY B-complex with vitamin C Capsule 1 cap PO DAILY acetaminophen [Tylenol] 325 mg capsule 325 mg PO Q6H PRN Discharge Instructions Instructions: Hypomagnesemia Additional Instructions: You are positive for COVID which is likely making you feel unwell If your stomach symptoms in a week follow-up with your primary care provider If you feel more ill, have severe worsening weakness or new symptoms such as difficulty breathing return to the emergency department for reevaluation HPI General Mode of arrival: ambulatory. Date/Time Provider Initiated Documentation: 10/03/24 14:47. Limitations to Documentation: no limitations. Information obtained by: patient. History of Present Illness 74 year old M presents to the emergency department with the chief complaint of nausea, diarrhea, lightheaded, described as moderate, Patient started experiencing this week(s) (1) and it has been constant. No relieving factors improve symptom(s), No exacerbating factors reported . Patient notes cough and weakness; denies chest pain and fever/chills. Patient did receive the following treatments prior to arrival, none Related Data Home Medications ?Medication ?Instructions ?Recorded ?Confirmed B-complex with vitamin C 1 cap PO DAILY 08/02/23 10/03/24 acetaminophen 325 mg capsule 325 mg PO Q6H PRN 08/02/23 10/03/24 (Tylenol) multivitamin 1 tab PO DAILY 08/02/23 10/03/24 meclizine 25 mg tablet 25 mg PO DAILY PRN dizziness #30 05/28/24 10/03/24 tabs ondansetron 4 mg disintegrating 4 mg PO Q8H PRN 06/14/24 10/03/24 tablet rosuvastatin 20 mg tablet 20 mg PO DAILY #90 tabs 07/02/24 10/03/24 apixaban 5 mg tablet (Eliquis) 5 mg PO BID #180 tabs 09/17/24 10/03/24 carbidopa 10 mg-levodopa 100 mg 1 tab PO TID #30 tabs 09/17/24 10/03/24 tablet (Sinemet) diltiazem HCl 120 mg capsule,24 120 mg PO DAILY #90 caps 09/17/24 10/03/24 hr,extended release etanercept 50 mg/mL (1 mL) 50 mg subcut QWEEK #4 mL 09/17/24 10/03/24 subcutaneous cartridge (Enbrel Mini) hydrochlorothiazide 12.5 mg tablet 12.5 mg PO DAILY #90 tabs 09/17/24 10/03/24 lisinopril 5 mg tablet 5 mg PO DAILY #90 tabs 09/17/24 10/03/24 Previous Rx's ?Medication ?Instructions ?Recorded meclizine 25 mg tablet 25 mg PO DAILY PRN dizziness #30 05/28/24 tabs rosuvastatin 20 mg tablet 20 mg PO DAILY #90 tabs 07/02/24 apixaban 5 mg tablet (Eliquis) 5 mg PO BID #180 tabs 09/17/24 carbidopa 10 mg-levodopa 100 mg 1 tab PO TID #30 tabs 09/17/24 tablet (Sinemet) diltiazem HCl 120 mg capsule,24 120 mg PO DAILY #90 caps 09/17/24 hr,extended release etanercept 50 mg/mL (1 mL) 50 mg subcut QWEEK #4 mL 09/17/24 subcutaneous cartridge (Enbrel Mini) hydrochlorothiazide 12.5 mg tablet 12.5 mg PO DAILY #90 tabs 09/17/24 lisinopril 5 mg tablet 5 mg PO DAILY #90 tabs 09/17/24 Allergies Allergy/AdvReac Type Severity Reaction Status Date / Time dexamethasone Allergy Intermediate Other (See Verified 10/03/24 14:36 Comment) [id number] Reductase AdvReac Intermediate myalgias Verified 10/03/24 14:36 Inhibitor General Stated Complaint: Dizzy/Sync ROMÁN: 3 Review of Systems All systems reviewed & are unremarkable except as noted in HPI and below Constitutional Constitutional: Denies chills, Denies fever(s), Reports headache(s) and Reports weakness ENT Ears, Nose, Mouth, and Throat: Reports headache(s) Cardiovascular Cardiovascular: Denies chest pain and Denies dyspnea Respiratory Respiratory: Denies dyspnea Gastrointestinal Gastrointestinal: Denies abdominal pain, Reports diarrhea, Reports nausea and Denies vomiting Neurologic Neurologic: Reports headache(s) and Reports weakness Exam Const General: no acute distress Orientation: alert [facility] Head: normal to inspection Ears: external ears normal General nose exam: external nose normal Mouth: moist mucous membranes Eyes General: appearance normal, both eyes and all related structures Neck Neck: normal visual inspection Resp Effort & Inspection: normal respiratory effort and able to speak in complete sentences Auscultation: clear to auscultation bilaterally Cardio Jugular venous pressure: no JVD Rate: regular rate GI Palpation: soft and nontender Skin General skin exam: no rashes or lesions noted Neuro General: patient alert and patient oriented x3 Cranial Nerves: CN's II-XI intact bilaterally and PERRL Cognition: normal cognition Speech: speech normal Extrem General: normal to inspection Psych Mental Status: mental status grossly normal Course Vital Signs Vital signs: Vital Signs Temperature 36.6 C 10/03/24 14:24 Pulse 74 10/03/24 14:24 Respiratory Rate 20 10/03/24 14:24 Blood Pressure 149/81 H 10/03/24 14:24 Pulse Oximetry 97 10/03/24 14:24 Temperature 36.6 C 10/03/24 14:24 Temperature Source Oral 10/03/24 14:24 Pulse 74 10/03/24 14:24 Respiratory Rate 20 10/03/24 14:24 Blood Pressure 149/81 H 10/03/24 14:24 Pulse Oximetry 97 10/03/24 14:24 Oxygen Delivery Method Room Air 10/03/24 14:24 Oxygen Flow Rate 0 10/03/24 14:24 Pain Level 2 10/03/24 14:24 Medical Decision Making 74-year-old male with history of A-fib on apixaban, hydrocephalus, hypertension, psoriatic arthritis, who comes in with 1 week of diarrhea and nausea without vomiting. He also feels lightheaded and general weakness. He denies syncope, chest pain, difficulty breathing. He has had a dry cough. He is well-appearing speaking full sentences on exam. Hemodynamically stable. He has no focal neurological deficits. He says the headache he has is mild in the front of his head. No falls. Current nerves II through XII are intact. He has a soft nontender abdomen. Given his nausea and diarrhea I suspect he could have a gastroenteritis, given the lack of abdominal tenderness do not feel imaging of his abdomen is indicated. Given his anticoagulated status and headache will obtain CT head to evaluate for hemorrhage. Will also check a chest x-ray given his cough and a Fluvid, check a CBC CMP lipase and given the lightheadedness check troponins. He has no tachycardia or signs of DVT on exam so doubt PE. No tearing back pain and equal peripheral pulses so doubt dissection. Patient stable and feels well without symptoms. CT head unremarkable and labs only show a low magnesium of 1.3 and mildly low potassium. He is positive for COVID. He is past 5 days since his symptom onset so do not feel Paxlovid would benefit him. He is stable for discharge and follow-up with his PCP if needed, return precautions given Differential Diagnosis Differential Diagnosis: Gastroenteritis, electrolyte abnormality, intracerebral hemorrhage Medical Records Medical records reviewed: Yes I reviewed the patient's medical records. Lab Data Lab results reviewed: Yes I reviewed the patient's lab results. 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 systolic function w/ an EF of 55%, mild left vent hypertrophy, mild dilated left atrium, diastolic dysfunction, no hemodynamically significant valve abnormalities TIA (transient ischemic attack) Surgical History Hx of cataract surgery (~2015) H/O total knee replacement (~2020) 07/19/2021 [facility]. -hb Family History Mother Dementia Heart disease Hypertension Father Cancer Brother Heart disease Hypertension Daughter Asthma Hypertension Son Heart disease Hypertension Social History Smoking/Tobacco Use Status: Never Second Hand Exposure: Yes Smoking risk assessment performed?: Yes Alcohol Intake: current Alcohol Intake frequency: holidays/special occasions only Alcohol type: beer Drug use: Daily Substance use type: marijuana Adopted: No Caregiver/Support person: No Foster care: No Household members: spouse and family Housing: house Number of Children: 1 number of grandchildren: 2 Communication Needs: Corrective Lenses Do you need help understanding health information?: Never current occupation: retired Pets and animals: Yes Pets and animals: dog(s) Sexually active: No Do you think of yourself as: straight/heterosexual Current gender identity: male What is your relationship status?: How often do you talk on the phone with friends or family?: once per week How often do you get together with friends or relatives?: decline to answer How often do you attend baptist or samaritan services?: decline to answer Do you belong to any clubs or organized social groups?: yes Panel score (0-1 are the most socially isolated patients): 2 What type of physical activity do you participate in: none Dawna/Jew: None Special dawna needs: No Agree to transfusion: Yes Seatbelt use: always Helmet use: Yes Drive intox or ride w/intox motor coach driver: No Working smoke detector in home: Yes Carbon monox detector in home: Yes Firearms in home: No Do you feel safe at home: Yes Do you feel safe in your relationship?: Yes Victim of physical abuse: No Victim of emotional abuse: No Victim of sexual abuse: No
[2024-10-03 16:25] LABS: Bilirubin Negative (Negative); Blood Negative (Negative); Clarity Clear (Clear); Glucose Negative (Negative); Ketones Negative (Negative); Leukocyte Esterase Negative (Negative); Nitrite Negative (Negative); Urobilinogen 0.2 mg/dL (Up to 0.2)
[2024-10-03 16:47] LABS: BE (Venous) 3 mmol/L (-2-3); HCO3 (Venous) 27 mmol/L (23-28); O2 Sat (Venous) 77 %; TCO2 (Venous) 24 mmol/L (24-29); pCO2 (Venous) 41 mmHg (41-51); pH (Venous) 7.43 (7.31-7.41); pO2 (Venous) 40 mmHg
[2024-10-03 16:48] LABS: Abs Immature Grans 0.01 10^3/uL (0.0-0.06); Absolute Basophil Count 0.05 10^3/uL (0.0-0.2); Absolute Eosinophil Count 0.11 10^3/uL (0.0-0.7); Absolute Lymphocyte Count 1.78 10^3/uL (1.2-3.4); Absolute Monocyte Count 1.16 10^3/uL (0.1-0.8); Absolute Neutrophil Count 2.52 10^3/uL (1.2-6.7); Basophils % 0.9 %; HCT 45.8 % (40.0-50.0); HGB 15.5 g/dL (13.5-17.5); Immature Grans % 0.2 %; Lymphocytes % 31.6 %; MCH 33.1 pg (27.0-33.0); MCHC 33.8 % (32.0-36.0); MCV 98 fL (80-95); MPV 8.8 fL (8.0-11.0); Monocytes % 20.6 %; Neutrophils % 44.7 %; Platelet Count 240 10^3/uL (130-400); RBC 4.68 10^6/uL (4.36-5.78); RDW 11.9 % (11.8-14.1); RDW-SD 43.3 fL; WBC 5.63 10^3/uL (4.4-10.8)
[2024-10-03 16:53] LABS: Influenza A PCR Negative (Negative); Influenza B PCR Negative (Negative); RSV PCR Negative (Negative)
[2024-10-03 16:54] LABS: COVID-19 PCR Positive (Negative); Source Nasopharynx
[2024-10-03 17:02] LABS: INR 1.1 (0.9-1.1); PTT Activated 31.5 sec (20.6-30.2); Prothrombin Time 10.9 sec (9.1-11.1)
[2024-10-03 17:14] LABS: ALT 36 U/L (16-63); AST 35 U/L (15-37); Albumin 3.8 g/dL (3.4-5.0); Alkaline Phosphatase 48 U/L (46-116); Anion Gap 10.1 mmol/L (3-11); BUN 14 mg/dL (7-18); Bilirubin, Total 0.43 mg/dL (0.2-1.0); CO2 28.9 mmol/L (21.0-32.0); Calcium 9.3 mg/dL (8.5-10.1); Chloride 102 mmol/L (98-107); Glucose 107 mg/dL (74-106); Lipase 32 U/L (<78); Magnesium 2.1 mg/dL (1.8-2.4); NT-proBNP 61 pg/mL (<300); Potassium 3.3 mmol/L (3.5-5.1); Sodium 141 mmol/L (136-145); Total Protein 8.1 g/dL (6.4-8.2); Troponin I 7 ng/L (<or=76)
[2024-10-03 17:46] LABS: Procalcitonin < 0.10 ng/mL
[2024-10-03] MEDS: Magnesium Oxide 400 MG TAB 800 MG PO (18:03)
== END 2024-10-03 18:04 | disposition home or self-care (01) ==
PROVIDERS: Emergency Provider Emergency Medicine; PCP Nurse Practitioner Family
DX: U07.1 COVID-19 (principal); R42 Dizziness and giddiness; Z11.52 Encounter for screening for COVID-19; E83.42 Hypomagnesemia; I10 Essential (primary) hypertension; Z86.79 Personal history of other diseases of the circulatory system; Z79.01 Long term (current) use of anticoagulants
CPT/HCPCS: 36415; 80053; 82805; 83690; 84145; 87637; 93005; 96374; 99284; 70450; 71046; 81003; 83735; 83880; 84443; 84484; 85025; 85610; 85730; 93010

== ENCOUNTER 2024-10-16 01:10 | Outpatient (CLI) | payer MEDICARE, SELFPAY ==
[2024-10-16 13:13] LABS: ALT 28 U/L (16-63); AST 17 U/L (15-37); Albumin 3.8 g/dL (3.4-5.0); Alkaline Phosphatase 54 U/L (46-116); Anion Gap 8.7 mmol/L (3-11); BUN 13 mg/dL (7-18); Bilirubin, Total 0.54 mg/dL (0.2-1.0); CO2 26.3 mmol/L (21.0-32.0); CREATININE 1.1 mg/dL (0.70-1.30); Calcium 9.1 mg/dL (8.5-10.1); Calculated LDL 63 mg/dL (<100); Chloride 102 mmol/L (98-107); Cholesterol 133 mg/dL (<200); Estimated GFR 69.57 (mL/min/1.73m2); Glucose 118 mg/dL (74-106); HDL Cholesterol 56 mg/dL (40-60); Potassium 3.7 mmol/L (3.5-5.1); Sodium 137 mmol/L (136-145); Total Protein 7.8 g/dL (6.4-8.2); Triglyceride 73 mg/dL (<150); Vitamin B12 646 pg/mL (193-986)
[2024-10-16 13:26] LABS: Hemoglobin A1C 5.9 % (<5.7)
== END 2024-10-16 01:11 | disposition home or self-care (01) ==
LOC: LOS 01:10
PROVIDERS: PCP Nurse Practitioner Family; Visit Provider Nurse Practitioner Family
DX: R73.03 Prediabetes (principal); R26.9 Unspecified abnormalities of gait and mobility; R53.1 Weakness; E78.5 Hyperlipidemia, unspecified
CPT/HCPCS: 36415; 80053; 80061; 82607; 83036

== ENCOUNTER → 2025-01-14 13:25 | Outpatient (BNVA) | payer MEDICARE, SELFPAY | PROVIDERS: PCP Nurse Practitioner Family; Referring Provider Nurse Practitioner Family; Visit Provider Psychiatry & Neurology Neurology | DX: G43.009 Migraine without aura, not intractable, without status migrainosus (principal); G44.40 Drug-induced headache, not elsewhere classified, not intractable; R26.9 Unspecified abnormalities of gait and mobility; M54.50 Low back pain, unspecified; M48.00 Spinal stenosis, site unspecified; G91.9 Hydrocephalus, unspecified; R41.3 Other amnesia; I10 Essential (primary) hypertension; R73.03 Prediabetes; I48.91 Unspecified atrial fibrillation | CPT/HCPCS: 99215 ==

== ENCOUNTER → 2025-03-28 14:32 | Outpatient (BNVA) | payer MEDICARE, SELFPAY | PROVIDERS: PCP Nurse Practitioner Family; Referring Provider Nurse Practitioner Family; Visit Provider Psychiatry & Neurology Neurology | DX: G91.9 Hydrocephalus, unspecified (principal); R26.9 Unspecified abnormalities of gait and mobility; M54.50 Low back pain, unspecified; M48.00 Spinal stenosis, site unspecified; R41.3 Other amnesia; G43.009 Migraine without aura, not intractable, without status migrainosus; G44.40 Drug-induced headache, not elsewhere classified, not intractable; I10 Essential (primary) hypertension | CPT/HCPCS: 99215 ==

== ENCOUNTER → 2025-04-22 09:09 | Outpatient (BNVA) | payer MEDICARE, SELFPAY | PROVIDERS: PCP Nurse Practitioner Family; Referring Provider Nurse Practitioner Family; Visit Provider Nurse Practitioner Adult Health | DX: R41.3 Other amnesia (principal) | CPT/HCPCS: 99213 ==

== ENCOUNTER → 2025-06-13 11:13 | Outpatient (BNVA) | payer MEDICARE, SELFPAY | PROVIDERS: PCP Nurse Practitioner Family; Referring Provider Nurse Practitioner Family; Visit Provider Psychiatry & Neurology Neurology | DX: G91.9 Hydrocephalus, unspecified (principal); R26.9 Unspecified abnormalities of gait and mobility; M54.50 Low back pain, unspecified; M48.00 Spinal stenosis, site unspecified; R41.3 Other amnesia; G43.009 Migraine without aura, not intractable, without status migrainosus; G44.40 Drug-induced headache, not elsewhere classified, not intractable; G89.29 Other chronic pain; I10 Essential (primary) hypertension | CPT/HCPCS: 99214 ==

== ENCOUNTER 2025-06-19 13:39 | Outpatient (CLI) | payer MEDICARE, SELFPAY ==
--- NOTE | 2025-06-19 13:30 | RT.EKG_ITS ---
APPROVED REPORT Exam: Resting ECG Reason for Exam: FU passing up Patient Location: O HR:74 bpm ECG Measurements Heart Rate 74 AXIS ND 131 P 71 QRSd 90 QRS 48 QT 381 T 44 QTc 423 Conclusion Sinus rhythm...normal P axis, V-rate 50- 99 Ventricular premature complex...V complex w/ short R-R interval Otherwise normal ECG
== END 2025-06-19 13:40 | disposition home or self-care (01) ==
LOC: DI.CM 13:40
PROVIDERS: PCP Nurse Practitioner Family; Visit Provider Nurse Practitioner Family
DX: R55 Syncope and collapse (principal)
CPT/HCPCS: 93010